=== PATIENT | female | born 1995 | race African-American/Black ===

== ENCOUNTER 2022-03-19 14:32 | Emergency (ER) | payer OTHER ==
[2022-03-19 15:52] LABS: Urine Blood Negative (Negative); Urine Glucose Negative (Negative); Urine Protein Negative (Negative); Urine Specific Gravity >=1.030 (1.005-1.030)
[2022-03-19 16:13] LABS: Urine Amorphous Sediment 1+ /HPF (NONE SEEN); Urine Bacteria <20 /HPF (<20); Urine RBC <5 /HPF (NONE SEEN)
[2022-03-19 16:14] LABS: Urine Specific Gravity/Preg >1.030 (1.005-1.030)
--- NOTE | 2022-03-19 16:42 | EDPHYS ---
Physician Documentation [facility] Name: Marine Sagastume Age: 27 yrs Sex: Female : 1995 Arrival Date: 03/19/2022 Time: 14:35 Bed DIS5 Private MD: ED Physician Yoel Murray HPI: 03/19 15:07 This 27 yrs old Black Female presents to ER via Unassigned with complaints of Abdominal pm1 Pain, Vomiting. 15:07 The patient presents with abdominal pain in the left lower quadrant. Onset: The pm1 symptoms/episode began/occurred 3 day(s) ago. The symptoms do not radiate. Associated signs and symptoms: Pertinent positives: nausea and vomiting, 1 episode of diarrhea, Pertinent negatives: fever. The symptoms are described as crampy. Modifying factors: The symptoms are alleviated by nothing, the symptoms are aggravated by nothing. Severity of pain: in the emergency department the pain is unchanged. The patient has not experienced similar symptoms in the past. The patient has not recently seen a physician. Sick contact at home. Her son with vomiting, diarrhea, and fever. Historical: - Allergies: 16:54 No Known Allergies; ss - Immunization history:: Client reports receiving the 2nd dose of the Covid vaccine. - Social history:: Smoking status: unknown. ROS: 15:07 Constitutional: Negative for fever, chills, and weight loss, Cardiovascular: Negative pm1 for chest pain, palpitations, and edema, Respiratory: Negative for shortness of breath, cough, wheezing, and pleuritic chest pain. 15:07 Back: Negative for injury and pain, : Negative for injury, bleeding, discharge, and swelling, MS/Extremity: Negative for injury and deformity, Skin: Negative for injury, rash, and discoloration, Neuro: Negative for headache, weakness, numbness, tingling, and seizure. 15:07 Abdomen/GI: Positive for abdominal pain, nausea, vomiting, and diarrhea, of the left lower quadrant. 15:07 All other systems are negative. Exam: 15:07 Constitutional: This is a well developed, well nourished patient who is awake, alert, pm1 and in no acute distress. Head/Face: Normocephalic, atraumatic. 15:07 Back: No spinal tenderness. No costovertebral tenderness. Full range of motion. Skin: Warm, dry with normal turgor. Normal color with no rashes, no lesions, and no evidence of cellulitis. MS/ Extremity: Pulses equal, no cyanosis. Neurovascular intact. Full, normal range of motion. 15:07 Cardiovascular: Exam negative for acute changes, Rate: normal, Rhythm: regular, Pulses: no pulse deficits are appreciated. 15:07 Respiratory: Exam negative for acute changes, respiratory distress, shortness of breath, Breath sounds: are clear throughout. 15:07 Abdomen/GI: Inspection: abdomen appears normal, Palpation: abdomen is soft and non-tender, in all quadrants. 15:07 Neuro: Exam negative for acute changes, Orientation: is normal, Mentation: is normal, Motor: is normal, moves all fours. Vital Signs: 16:54 BP 124 / 74; Pulse 74; Resp 16; Temp 97.2(TE); Pulse Ox 99% on R/A; ss MDM: 15:28 Patient medically screened. pm1 16:04 ED course: After evaluating the patient discussed plan of care and evaluation with pm1 blood work and CT. Patient does not want blood work or a CT. Patient was more interested in knowing if she was or not. Patient used artificial insemination by herself about 1 month ago and would like to know if the vomiting is related to . Patient also wants to know if she has a urinary tract infection. 16:41 Counseling: I had a detailed discussion with the patient and/or guardian regarding: the pm1 historical points, exam findings, and any diagnostic results supporting the discharge/admit diagnosis, lab results, the need for outpatient follow up, to return to the emergency department if symptoms worsen or persist or if there are any questions or concerns that arise at home. 20:26 Data reviewed: vital signs. Data interpreted: Pulse oximetry: on room air is 99 %. pm1 Interpretation: normal. 03/19 15:09 Order name: Urine Microscopic Only; Complete Time: 16:33 pm1 03/19 15:53 Order name: Urine Dipstick-Ancillary; Complete Time: 15:59 EDMS 03/19 15:09 Order name: Urine Dipstick-Ancillary (obtain specimen); Complete Time: 15:56 pm1 03/19 16:04 Order name: Urine --Ancillary; Complete Time: 16:33 EDMS 03/19 15:09 Order name: Urine Test (obtain specimen); Complete Time: 15:56 pm1 Administered Medications: No medications were administered Disposition Summary: 03/19/22 16:41 Discharge Ordered Location: Home pm1 Problem: new pm1 Symptoms: have improved pm1 Condition: Stable pm1 Diagnosis - Vomiting pm1 - Diarrhea, unspecified pm1 - Abdominal pain, unspecified pm1 Followup: pm1 - With: Emergency Department - When: As needed - Reason: Worsening of condition Followup: pm1 - With: Private Physician - When: 2 - 3 days - Reason: Recheck today's complaints, Continuance of care, Re-evaluation by your physician Discharge Instructions: - Discharge Summary Sheet pm1 - Abdominal Pain, Adult pm1 - Food Choices to Help Relieve Diarrhea, Adult pm1 - Diarrhea, Adult pm1 - Viral Gastroenteritis, Adult pm1 - Vomiting, Adult pm1 Forms: - Medication Reconciliation Form pm1 - Thank You Letter pm1 - Antibiotic Education pm1 - Prescription Opioid Use pm1 Prescriptions: - ondansetron 4 mg Oral tablet,disintegrating - take 1 tablet by ORAL route every 8 hours As needed; 15 tablet; Refills: 0, pm1 Product Selection Permitted - dicyclomine 20 mg Oral Tablet - take 1 tablet by ORAL route every 6 hours As needed; 20 tablet; Refills: 0, pm1 Product Selection Permitted Addendum: 03/21/2022 18:38 Co-signature as Attending Physician, Yoel purcell a2 Signatures: Dispatcher [employer] [facility] Jennifer Morel RN RN ss Marinas, Patrick, THERAPEUTIC RECREATION DIRECTOR THERAPEUTIC RECREATION DIRECTOR pm1 Yoel Murray MD MD nc2
--- NOTE | 2022-03-19 16:42 | ER ---
Nurse's Notes [facility] Name: Marine Sagastume Age: 27 yrs Sex: Female : 1995 Arrival Date: 03/19/2022 Time: 14:35 Bed DIS5 Private MD: Diagnosis: Vomiting;Diarrhea, unspecified;Abdominal pain, unspecified Presentation: 03/19 15:43 Chief complaint:. iw 15:44 Chief complaint: Patient states: LLQ pain , n/v/d X 3 days. Ebola Screen: Patient iw negative for fever greater than or equal to 101.5 degrees Fahrenheit, and additional compatible Ebola Virus Disease symptoms Patient denies exposure to infectious person. Patient denies travel to an Ebola-affected area in the 21 days before illness onset. No symptoms or risks identified at this time. Initial Sepsis Screen: Does the patient meet any 2 criteria? No. Patient's initial sepsis screen is negative. Does the patient have a suspected source of infection?. Risk Assessment: Do you want to hurt yourself or someone else? Patient reports no desire to harm self or others. Onset of symptoms was March 16, 2022. 15:44 Method Of Arrival: Ambulatory iw 15:44 Acuity: EDUARDO 3 iw Historical: - Allergies: 16:54 No Known Allergies; ss - Immunization history:: Client reports receiving the 2nd dose of the Covid vaccine. - Social history:: Smoking status: unknown. Screenin:54 Abuse screen: Denies threats or abuse. Denies injuries from another. Nutritional ss screening: No deficits noted. Tuberculosis screening: Never had TB. Fall Risk None identified. Assessment: 16:50 General: Appears in no apparent distress. comfortable, Behavior is calm, cooperative. ss Pain: Complains of pain in left lower quadrant Pain currently is 2 out of 10 on a pain scale. Quality of pain is described as tender, Is. Neuro: Level of Consciousness is awake, alert, obeys commands, Oriented to person, place, time, situation. Cardiovascular: Capillary refill < 3 seconds is brisk in bilateral fingers. Respiratory: Airway is patent Respiratory effort is even, unlabored, Respiratory pattern is regular, symmetrical. GI: Abd is soft and non tender X 4 quads. Derm: Skin is intact, is healthy with good turgor, Skin is dry, Skin is pink, warm \T\ dry. normal. Musculoskeletal: Circulation, motion, and sensation intact. Range of motion: intact in all extremities, Swelling absent. Vital Signs: 16:54 BP 124 / 74; Pulse 74; Resp 16; Temp 97.2(TE); Pulse Ox 99% on R/A; ss ED Course: 14:35 Patient arrived in ED. am2 15:07 Arpit Aguirre NP is PHCP. pm1 15:07 Yoel Murray MD is Attending Physician. pm1 15:44 Triage completed. iw 16:32 Cintia Swann, RN is Primary Nurse. iw 16:54 Arm band placed on right wrist. ss 16:54 Patient has correct armband on for positive identification. Bed in low position. Call ss light in reach. 16:54 No provider procedures requiring assistance completed. Patient did not have IV access ss during this emergency room visit. Administered Medications: No medications were administered Outcome: 16:41 Discharge ordered by MD. pm1 16:54 Discharged to home ambulatory. ss 16:54 Condition: good 16:54 Discharge instructions given to patient, Instructed on discharge instructions, follow up and referral plans. Demonstrated understanding of instructions, follow-up care, Prescriptions given X 2. 17:01 Patient left the ED. Signatures: Cintia Swann RN RN Jennifer Morel RN RN Arpit Aguirre NP [employer]WIFE [employer] BIRTH CENTER OWNER pm1 Emilie Siu am2
[2022-03-19 21:50] VITALS: BP 124/74; TEMP 97.2; O2SAT 99
== END 2022-03-19 17:01 | disposition home or self-care (01) ==
LOC: ER 14:32
DX: R10.32 Left lower quadrant pain (principal); R11.2 Nausea with vomiting, unspecified; R19.7 Diarrhea, unspecified
CPT/HCPCS: 81003; 81015; 81025; 99282

== ENCOUNTER 2022-03-23 15:20 | Emergency (ER) | payer OTHER ==
[2022-03-23 16:47] LABS: SARS-COV-2 RT PCR NEGATIVE (NEGATIVE)
--- NOTE | 2022-03-23 17:29 | ER ---
Nurse's Notes [facility] Name: Marine Sagastume Age: 27 yrs Sex: Female : 1995 Arrival Date: 03/23/2022 Time: 15:22 Bed 18 Private MD: Diagnosis: Streptococcal pharyngitis Presentation: 03/23 15:34 Chief complaint: Patient states: cough, chills, fever, sore throat and body aches since vg1 yesterday, denies NVD. Coronavirus screen: Vaccine status: Patient reports being unvaccinated. Client denies travel out of the [place] in the last 14 days. Client presents with at least one sign or symptom that may indicate coronavirus-19. Standard/surgical mask placed on the client. Ebola Screen: Patient denies exposure to infectious person. Patient denies travel to an Ebola-affected area in the 21 days before illness onset. Initial Sepsis Screen: Does the patient meet any 2 criteria? No. Patient's initial sepsis screen is negative. Does the patient have a suspected source of infection? No. Patient's initial sepsis screen is negative. Risk Assessment: Do you want to hurt yourself or someone else? Patient reports no desire to harm self or others. Onset of symptoms was March 22, 2022. 15:34 Method Of Arrival: Ambulatory vg1 15:34 Acuity: EDUARDO 3 vg1 Triage Assessment: 15:35 General: Appears in no apparent distress. uncomfortable, Behavior is cooperative. Pain: vg1 Complains of pain in generalized body. EENT: Throat is reddened. 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 - Social history:: Smoking status: Patient denies any tobacco usage or history of. Screenin:30 Abuse screen: Denies threats or abuse. Nutritional screening: No deficits noted. ll1 Tuberculosis screening: No symptoms or risk factors identified. Fall Risk Total Williamson Fall Scale indicates No Risk (0-24 pts). Assessment: 16:30 Reassessment: No changes from previously documented assessment. Patient and/or family ll1 updated on plan of care and expected duration. Pain level reassessed. Patient is alert, oriented x 3, equal unlabored respirations, skin warm/dry/pink. 17:30 Reassessment: No changes from previously documented assessment. Patient and/or family ll1 updated on plan of care and expected duration. Pain level reassessed. Patient is alert, oriented x 3, equal unlabored respirations, skin warm/dry/pink. 18:30 Reassessment: No changes from previously documented assessment. Patient and/or family ll1 updated on plan of care and expected duration. Pain level reassessed. Patient is alert, oriented x 3, equal unlabored respirations, skin warm/dry/pink. 18:41 Respiratory: Airway is patent Respiratory effort is even, unlabored, Breath sounds are ll1 clear bilaterally. Vital Signs: 15:34 BP 152 / 79; Pulse 120; Resp 18; Temp 99.5(TE); Pulse Ox 100% on R/A; Weight 136.08 kg; vg1 Height 5 ft. 5 in. (165.10 cm); Pain 5/10; 17:54 Pulse 105; ll1 18:40 BP 127 / 77; Pulse 104; Resp 17; Pulse Ox 100% on R/A; ll1 15:34 Body Mass Index 49.92 (136.08 kg, 165.10 cm) vg1 ED Course: 15:22 Patient arrived in ED. rg4 15:35 Triage completed. vg1 15:35 Arm band placed on. vg1 15:40 COVID swab sent to lab. Flu and/or RSV swab sent to lab. Strep swab sent to lab. vg1 15:48 Arpit Aguirre NP is PHCP. pm1 15:48 Yoel Murray MD is Attending Physician. pm1 16:00 Kala Armenta RN is Primary Nurse. ll1 16:00 Patient has correct armband on for positive identification. Bed in low position. Call ll1 light in reach. Cardiac monitoring not applicable on this patient. 18:41 No provider procedures requiring assistance completed. Patient did not have IV access ll1 during this emergency room visit. Administered Medications: 17:54 Drug: Decadron (dexamethasone) 10 mg Route: IM; Site: right gluteus; ll1 19:10 Follow up: Response: No adverse reaction ll1 17:54 Drug: Rocephin (cefTRIAXone) 1 grams Route: IM; Site: left gluteus; 1 19:10 Follow up: Response: No adverse reaction 1 Outcome: 17:29 Discharge ordered by MD. pm1 18:41 Patient left the ED. ll1 18:41 Discharged to home ambulatory. ll1 18:41 Condition: stable 18:41 Discharge instructions given to patient, Instructed on discharge instructions, follow up and referral plans. medication usage, Demonstrated understanding of instructions, follow-up care, medications, Prescriptions given X 1. Signatures: Arpit Aguirre NP TELEVISION PICTURE TUBE REBUILDER pm1 Anya Oden rg4 Hailey Oden RN RN vg1 Kala Armenta RN RN 1 Corrections: (The following items were deleted from the chart) 15:36 15:34 Acuity: EDUARDO 4 vg1 vg1 15:36 15:35 PSHx: None; vg1 vg1
--- NOTE | 2022-03-23 17:29 | EDPHYS ---
Physician Documentation [facility] Name: Marine Sagastume Age: 27 yrs Sex: Female : 1995 Arrival Date: 03/23/2022 Time: 15:22 Bed 18 Private MD: ED Physician Yoel Murray HPI: 03/23 16:57 This 27 yrs old Black Female presents to ER via Ambulatory with complaints of Fever, pm1 Sore Throat. 16:57 The patient presents with sore throat. The patient describes throat pain as raw, pm1 scratchy. Onset: The symptoms/episode began/occurred yesterday. Severity of symptoms: in the emergency department the symptoms are actually worse. Modifying factors: The symptoms are alleviated by nothing, the symptoms are aggravated by swallowing, Patient's oral intake status: good unaware of sick contact. Associated signs and symptoms: Pertinent positives: cough, fever, bodyaches. The patient has not recently seen a physician. 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 - Social history:: Smoking status: Patient denies any tobacco usage or history of. ROS: 16:57 Eyes: Negative for injury, pain, redness, and discharge. pm1 16:57 Cardiovascular: Negative for chest pain, palpitations, and edema, Respiratory: Negative for shortness of breath, cough, wheezing, and pleuritic chest pain, MS/Extremity: Negative for injury and deformity, Skin: Negative for injury, rash, and discoloration. 16:57 Constitutional: Positive for body aches, chills, fever, Negative for poor PO intake. 16:57 ENT: Positive for sore throat, Negative for drainage from ear(s), ear pain, difficulty swallowing, difficulty handling secretions, hoarseness. 16:57 Neuro: Positive for headache, Negative for numbness, tingling, weakness. Exam: 16:57 Constitutional: This is a well developed, well nourished patient who is awake, alert, pm1 and in no acute distress. Head/Face: Normocephalic, atraumatic. 16:57 Back: No spinal tenderness. No costovertebral tenderness. Full range of motion. Skin: Warm, dry with normal turgor. Normal color with no rashes, no lesions, and no evidence of cellulitis. MS/ Extremity: Pulses equal, no cyanosis. Neurovascular intact. Full, normal range of motion. 16:57 Eyes: Exam is negative for acute changes, Periorbital structures: appear normal, Pupils: no acute changes, Extraocular movements: no acute changes, Sclera: no acute changes, icterus, is not appreciated. 16:57 ENT: Exam is negative for acute changes. 16:57 ENT: Posterior pharynx: Airway: no evidence of obstruction, Tonsils: bilaterally enlarged, with erythema, erythema, peritonsillar mass, is not appreciated. 16:57 Neck: Exam negative for acute changes, ROM/movement: no acute changes, Lymph nodes: lymphadenopathy is appreciated, anterior cervical nodes. 16:57 Cardiovascular: Exam negative for acute changes, Rate: normal, Rhythm: regular, Pulses: no pulse deficits are appreciated. 16:57 Respiratory: Exam negative for acute changes, respiratory distress, shortness of breath. 16:57 Abdomen/GI: Exam negative for acute changes, Palpation: abdomen is soft and non-tender, in all quadrants. 16:57 Neuro: Exam negative for acute changes, Orientation: is normal, Mentation: is normal, Motor: is normal, moves all fours. Vital Signs: 15:34 BP 152 / 79; Pulse 120; Resp 18; Temp 99.5(TE); Pulse Ox 100% on R/A; Weight 136.08 kg; vg1 Height 5 ft. 5 in. (165.10 cm); Pain 5/10; 17:54 Pulse 105; ll1 18:40 BP 127 / 77; Pulse 104; Resp 17; Pulse Ox 100% on R/A; ll1 15:34 Body Mass Index 49.92 (136.08 kg, 165.10 cm) vg1 MDM: 15:51 Patient medically screened. pm1 17:27 Data reviewed: vital signs. Data interpreted: Pulse oximetry: on room air is 100 %. pm1 Interpretation: normal. 17:28 Counseling: I had a detailed discussion with the patient and/or guardian regarding: the pm1 historical points, exam findings, and any diagnostic results supporting the discharge/admit diagnosis, lab results, the need for outpatient follow up, to return to the emergency department if symptoms worsen or persist or if there are any questions or concerns that arise at home. 03/23 15:38 Order name: Strep; Complete Time: 16:57 vg1 03/23 15:40 Order name: Group A Streptococcus Rapid Sc; Complete Time: 17:21 EDMS Administered Medications: 17:54 Drug: Decadron (dexamethasone) 10 mg Route: IM; Site: right gluteus; ll1 19:10 Follow up: Response: No adverse reaction ll1 17:54 Drug: Rocephin (cefTRIAXone) 1 grams Route: IM; Site: left gluteus; ll1 19:10 Follow up: Response: No adverse reaction ll1 Disposition Summary: 03/23/22 17:29 Discharge Ordered Location: Home pm1 Problem: new pm1 Symptoms: have improved pm1 Condition: Stable pm1 Diagnosis - Streptococcal pharyngitis pm1 Followup: pm1 - With: Emergency Department - When: As needed - Reason: Worsening of condition Followup: pm1 - With: Private Physician - When: 2 - 3 days - Reason: Recheck today's complaints, Continuance of care, Re-evaluation by your physician Discharge Instructions: - Discharge Summary Sheet pm1 - Strep Throat, Adult pm1 Forms: - Medication Reconciliation Form pm1 - Thank You Letter pm1 - Antibiotic Education pm1 - Prescription Opioid Use pm1 - Work release form ll1 Prescriptions: - Amoxicillin 500 mg Oral Capsule - take 1 capsule by ORAL route every 8 hours for 10 days; 30 tablet; Refills: 0, pm1 Product Selection Permitted Signatures: Dispatcher [employer] EDArpit Conn NP TURPENTINE FARMER pm1 Hailey Oden, RN RN vg1 Kala Armenta RN RN ll1 Corrections: (The following items were deleted from the chart) 15:36 15:35 PSHx: None; vg1 vg1
[2022-03-23] MEDS ORDERED: CEFTRIAXONE 1000 MG/VIAL ONE (17:51)
[2022-03-23] MEDS ORDERED: LIDOCAINE 1% MPF 2 ML AMPULE ONE (17:51)
[2022-03-23] MEDS ORDERED: dexAMETHasone 10 MG/ML VIAL ONE (17:51)
[2022-03-23 18:45] VITALS: BP 152/79; TEMP 99.5; O2SAT 100
== END 2022-03-23 18:41 | disposition home or self-care (01) ==
LOC: ER 15:20
DX: J02.0 Streptococcal pharyngitis (principal); Z20.822 Contact with and (suspected) exposure to COVID-19
CPT/HCPCS: 87081; 0240U; 96372; 99283; J1100

== ENCOUNTER 2022-10-14 09:54 | Emergency (ER) | payer OTHER ==
[2022-10-14] MEDS ORDERED: IBUPROFEN 400 MG TAB ONE (12:09)
--- NOTE | 2022-10-14 12:11 | EDPHYS ---
Physician Documentation [facility] Name: Marine Sagatsume Age: 27 yrs Sex: Female : 1995 Arrival Date: 10/14/2022 Time: 09:58 Bed Treatment Private MD: ED Physician Richie Gomez HPI: 10/14 10:23 This 27 yrs old Black Female presents to ER via Ambulatory with complaints of Cough, jmm Chest Pain. 10:23 The patient or guardian reports cough. Onset: The symptoms/episode began/occurred jmm gradually. Modifying factors: The symptoms are alleviated by nothing, the symptoms are aggravated by nothing. This is a 27 year old female with no chronic medical conditions that presents ot the ED with complaints of cough, fever, body aches chest pain. 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 - Social history:: Smoking status: Patient denies any tobacco usage or history of. Patient/guardian denies using alcohol. ROS: 10:23 Constitutional: Positive for body aches, fever. jmm 10:23 Cardiovascular: Positive for chest pain, with cough. 10:23 Respiratory: Positive for cough. 10:23 All other systems are negative. Exam: 10:23 Constitutional: This is a well developed, well nourished patient who is awake, alert, jmm and in no acute distress. Head/Face: atraumatic. ENT: Moist Mucus Membranes Neck: Trachea midline, Supple Chest/axilla: Normal chest wall appearance and motion. Respiratory: Normal respirations, no respiratory distress appreciated Abdomen/GI: Non distended 10:23 Skin: General appearance color normal MS/ Extremity: Moves all extremities, no obvious deformities appreciated, no edema noted to the lower extremities Neuro: Awake and alert Psych: Behavior is normal, Mood is normal, Patient is cooperative and pleasant 10:23 Cardiovascular: Rate: tachycardic, Rhythm: regular. Vital Signs: 10:50 BP 142 / 75; Pulse 122; Resp 18; Temp 100.5(O); Pulse Ox 98% on R/A; Weight 141.52 kg; ld1 Height 5 ft. 6 in. (167.64 cm); Pain 3/10; 10:50 Body Mass Index 50.36 (141.52 kg, 167.64 cm) ld1 MDM: 10:50 Patient medically screened. [facility] 12:10 Data reviewed: vital signs, nurses notes. Counseling: I had a detailed discussion with [facility] the patient and/or guardian regarding: the historical points, exam findings, and any diagnostic results supporting the discharge/admit diagnosis, the need for outpatient follow up, to return to the emergency department if symptoms worsen or persist or if there are any questions or concerns that arise at home. 10/14 10:22 Order name: COVID-19/FLU A+B (Document "Date of Onset" if Symptomatic) [facility] Administered Medications: 12:13 Drug: Ibuprofen 800 mg Route: PO; Disposition: 12:42 Co-signature as Attending Physician, Richie Gomez MD. rn Disposition Summary: 10/14/22 12:11 Discharge Ordered Location: Home [facility] Condition: Stable [facility] Diagnosis - Viral Syndrome [facility] Followup: [facility] - With: Private Physician - When: 2 - 3 days - Reason: Recheck today's complaints, Continuance of care, Re-evaluation by your physician Discharge Instructions: - Discharge Summary Sheet [facility] - Influenza, Adult [facility] Forms: - Medication Reconciliation Form [facility] - Work release form [facility] - Thank You Letter [facility] - Antibiotic Education [facility] - Prescription Opioid Use [facility] Prescriptions: - Tamiflu 75 mg Oral Capsule - take 1 tablet by ORAL route every 12 hours for 5 days; 10 tablet; Refills: 0, [facility] Product Selection Permitted - promethazine-DM - take 5 milliliter by ORAL route every 4-6 hours As needed; 120 milliliter; [facility] Refills: 0, Product Selection Permitted Signatures: Dispatcher [employer] EDMS Aaron Grullon PA PA [facility] Richie Gomez MD MD rn Smirch, Shelby, RN RN ss Jennifer Dalton RN RN ld1 Corrections: (The following items were deleted from the chart) 10:53 10:52 Allergies: Aspirin; ld1 ld1
--- NOTE | 2022-10-14 12:11 | ER ---
Nurse's Notes [facility] Name: Marine Sagastume Age: 27 yrs Sex: Female : 1995 Arrival Date: 10/14/2022 Time: 09:58 Bed Treatment Private MD: Diagnosis: Viral Syndrome Presentation: 10/14 10:50 Chief complaint: Patient states: Chest pain - began 3 years ago - intermittent pain. ld1 Cough, Congestion, Fever, Body aches, Lightheaded since last night. Coronavirus screen: At this time, the client does not indicate any symptoms associated with coronavirus-19. Ebola Screen: No symptoms or risks identified at this time. Initial Sepsis Screen: Does the patient meet any 2 criteria? No. Patient's initial sepsis screen is negative. Does the patient have a suspected source of infection? No. Patient's initial sepsis screen is negative. Risk Assessment: Do you want to hurt yourself or someone else? Patient reports no desire to harm self or others. Onset of symptoms was October 14, 2022. 10:50 Method Of Arrival: Ambulatory ld1 10:50 Acuity: EDUARDO 3 ld1 Triage Assessment: 10:52 General: Appears in no apparent distress. comfortable, Behavior is calm, cooperative, ld1 appropriate for age. Pain: Complains of pain in chest Pain does not radiate. Pain currently is 3 out of 10 on a pain scale. Is intermittent. EENT: No signs and/or symptoms were reported regarding the EENT system. Neuro: Level of Consciousness is awake, alert, obeys commands, Oriented to person, place, time, situation. Cardiovascular: Capillary refill < 3 seconds Patient's skin is warm and dry. Cardiovascular: Chest pain is described as mild. Respiratory: Airway is patent Respiratory effort is even, unlabored. GI: Abdomen is round non-distended. : No signs and/or symptoms were reported regarding the genitourinary system. Derm: No signs and/or symptoms reported regarding the dermatologic system. Musculoskeletal: No signs and/or symptoms reported regarding the musculoskeletal system. COMPENSATION INTERN: 10:52 LMP 10/14/2022 ld1 Historical: - Allergies: 10:52 No Known Allergies; ld1 - PMHx: 10:52 None; ld1 - PSHx: 10:52 Cholecystectomy; ld1 - Immunization history:: Adult Immunizations up to date, Client reports receiving the 2nd dose of the Covid vaccine. - Social history:: Smoking status: Patient denies any tobacco usage or history of. Patient/guardian denies using alcohol. Vital Signs: 10:50 BP 142 / 75; Pulse 122; Resp 18; Temp 100.5(O); Pulse Ox 98% on R/A; Weight 141.52 kg; ld1 Height 5 ft. 6 in. (167.64 cm); Pain 3/10; 10:50 Body Mass Index 50.36 (141.52 kg, 167.64 cm) ld1 ED Course: 09:58 Patient arrived in ED. mr 10:02 Aaron Grullon PA is PHCP. marilou 10:02 Richie Gomez MD is Attending Physician. [facility] 10:52 Triage completed. ld1 10:52 Arm band placed on right wrist. ld1 12:07 Cintia Swann, RN is Primary Nurse. iw Administered Medications: 12:13 Drug: Ibuprofen 800 mg Route: PO; Outcome: 12:11 Discharge ordered by . [facility] 12:20 Patient left the ED. iw Signatures: Aaron Grullon PA PA jmm Rivera, Mary mr Cintia Swann, RICHAR RN Jennifer Morel RN RN Jennifer Dalton RN RN ld1 Corrections: (The following items were deleted from the chart) 10:53 10:52 Allergies: Aspirin; ld1 ld1
[2022-10-14 12:43] VITALS: BP 142/75; TEMP 100.5; O2SAT 98
[2022-10-14 14:23] LABS: SARS-COV-2 RT PCR NEGATIVE (NEGATIVE)
== END 2022-10-14 12:20 | disposition home or self-care (01) ==
LOC: ER 09:54
DX: B34.9 Viral infection, unspecified (principal); Z20.822 Contact with and (suspected) exposure to COVID-19
CPT/HCPCS: 0240U; 99282

== ENCOUNTER 2022-11-06 19:55 | Emergency (ER) | payer OTHER ==
[2022-11-06 21:40] LABS: Absolute Lymphocytes (CBC) 2.7 K/uL (0.7-4.9); Hematocrit 33.1 % (36.0-45.0); MCV 76.6 fL (80-100); MPV 9.3 fL (7.6-11.3); RBC Red Blood Cell Count 4.32 M/uL (3.86-4.86)
[2022-11-06 21:48] LABS: Albumin 3.3 g/dL (3.4-5.0); Bilirubin Total 0.1 mg/dL (0.2-1.0); Potassium 3.7 mmol/L (3.5-5.1); Troponin High Sensitivity 4.4 pg/mL (<58.9)
--- NOTE | 2022-11-06 22:00 | EDPHYS ---
Physician Documentation [facility] Name: Marine Sagastume Age: 27 yrs Sex: Female : 1995 Arrival Date: 11/06/2022 Time: 19:59 Bed 7 Private MD: ED Physician Anthony Nevarez HPI: 11/06 21:17 This 27 yrs old Black Female presents to ER via Ambulatory with complaints of Chest edith Pain, Back Pain. 21:17 The patient or guardian reports chest pain that is located primarily in the anterior edith chest wall, right. The pain does not radiate. Associated signs and symptoms: The patient has no apparent associated signs or symptoms. The chest pain is described as aching. Duration: The patient or guardian reports multiple episodes, that wax and wane. Modifying factors: The symptoms are alleviated by nothing. the symptoms are aggravated by nothing. Severity of pain: At its worst the pain was mild moderate in the emergency department the pain is unchanged. The patient has experienced similar episodes in the past, chronically. DRAW HAND: 20:16 LMP 10/21/2022 tw5 Historical: - Allergies: 20:16 No Known Allergies; tw5 - Home Meds: 20:16 None [Active]; tw5 - PMHx: 20:16 None; tw5 - PSHx: 20:16 Cholecystectomy; tw5 - Immunization history:: Flu vaccine is not up to date. - Social history:: Smoking status: Patient denies any tobacco usage or history of. - Family history:: not pertinent. ROS: 21:17 Constitutional: Negative for fever, chills, and weight loss, Eyes: Negative for injury, edith pain, redness, and discharge, ENT: Negative for injury, pain, and discharge, Neck: Negative for injury, pain, and swelling, Respiratory: Negative for shortness of breath, cough, wheezing, and pleuritic chest pain, Abdomen/GI: Negative for abdominal pain, nausea, vomiting, diarrhea, and constipation, Back: Negative for injury and pain, : Negative for injury, bleeding, discharge, and swelling, MS/Extremity: Negative for injury and deformity, Skin: Negative for injury, rash, and discoloration, Neuro: Negative for headache, weakness, numbness, tingling, and seizure. 21:17 Cardiovascular: Positive for chest pain. Exam: 21:17 Constitutional: This is a well developed, well nourished patient who is awake, alert, edith and in no acute distress. Head/Face: Normocephalic, atraumatic. Eyes: Pupils equal round and reactive to light, extra-ocular motions intact. Lids and lashes normal. Conjunctiva and sclera are non-icteric and not injected. Cornea within normal limits. Periorbital areas with no swelling, redness, or edema. ENT: Nares patent. No nasal discharge, no septal abnormalities noted. Tympanic membranes are normal and external auditory canals are clear. Oropharynx with no redness, swelling, or masses, exudates, or evidence of obstruction, uvula midline. Mucous membranes moist. Neck: Trachea midline, no thyromegaly or masses palpated, and no cervical lymphadenopathy. Supple, full range of motion without nuchal rigidity, or vertebral point tenderness. No Meningismus. Chest/axilla: Normal chest wall appearance and motion. Nontender with no deformity. No lesions are appreciated. Cardiovascular: Regular rate and rhythm with a normal S1 and S2. No gallops, murmurs, or rubs. Normal PMI, no JVD. No pulse deficits. Respiratory: Lungs have equal breath sounds bilaterally, clear to auscultation and percussion. No rales, rhonchi or wheezes noted. No increased work of breathing, no retractions or nasal flaring. Abdomen/GI: Soft, non-tender, with normal bowel sounds. No distension or tympany. No guarding or rebound. No evidence of tenderness throughout. Back: No spinal tenderness. No costovertebral tenderness. Full range of motion. Skin: Warm, dry with normal turgor. Normal color with no rashes, no lesions, and no evidence of cellulitis. MS/ Extremity: Pulses equal, no cyanosis. Neurovascular intact. Full, normal range of motion. Neuro: Awake and alert, GCS 15, oriented to person, place, time, and situation. Cranial nerves II-XII grossly intact. Motor strength 5/5 in all extremities. Sensory grossly intact. Cerebellar exam normal. Normal gait. Psych: Awake, alert, with orientation to person, place and time. Behavior, mood, and affect are within normal limits. 21:17 ECG was reviewed by the Attending Physician. Vital Signs: 20:14 BP 138 / 97; Pulse 88; Resp 18; Temp 98.3; Pulse Ox 100% ; Weight 140.61 kg; Height 5 tw5 ft. 6 in. (167.64 cm); Pain 8/10; 23:02 BP 125 / 91; Pulse 80; Resp 18; Pulse Ox 100% on R/A; Pain 0/10; kl 20:14 Body Mass Index 50.03 (140.61 kg, 167.64 cm) tw5 MDM: 20:28 Patient medically screened. [facility] 21:20 Differential diagnosis: abnormal EKG, acute pericarditis, chest wall pain, edith Cholelithiasis costochondritis, gastritis, pancreatitis, pleurisy, pneumonia, pneumothorax, pulmonary embolus, stable angina, thoracic aortic disection, unstable angina. HEART Score: History: Slightly Suspicious (0), ECG: Normal (0), Age: < or = 45 years (0), Risk Factors: No Risk Factors Known (0), Troponin: < or = 1 x Normal Limit (0), Total Score = 0. The patient's deep vein thrombosis risk score was calculated as follows: Total Score: 0. This patient was found to be at low risk for a deep vein thrombosis by using the Well's assessment criteria. The patient's pulmonary embolism risk score was calculated as follows: Total Score: 0-2 points. This patient was found to be at low risk for a pulmonary embolism by using the Well's assessment criteria. ROBINA Risk Score: TOTAL SCORE = 0. Data reviewed: vital signs, nurses notes, lab test result(s), EKG, radiologic studies, plain films. Data interpreted: car salter: rate is 88 beats/min, rhythm is regular, Pulse oximetry: on room air is 100 %. Test interpretation: by ED physician or midlevel provider: ECG, plain radiologic studies. Counseling: I had a detailed discussion with the patient and/or guardian regarding: the historical points, exam findings, and any diagnostic results supporting the discharge/admit diagnosis, lab results, radiology results, the need for outpatient follow up, for definitive care, a mate fishing vessel, a family practitioner. 11/06 20:51 Order name: CBC with Diff; Complete Time: 21:59 [facility] 11/06 20:51 Order name: Comprehensive Metabolic Panel; Complete Time: 21:59 [facility] 11/06 20:51 Order name: Troponin High Sensitivity; Complete Time: 21:59 [facility] 11/06 20:51 Order name: Lipase; Complete Time: 21:59 edith 11/06 22:14 Order name: Urine --Ancillary (enter results); Complete Time: 22:37 ds4 11/06 22:16 Order name: Urine Dipstick-Ancillary; Complete Time: 22:37 EDMS 11/06 20:51 Order name: CT Chest For PE Angio; Complete Time: 22:37 [facility] 11/06 20:51 Order name: Urine Dipstick-Ancillary (obtain specimen); Complete Time: 22:14 [facility] 11/06 20:51 Order name: Urine Test (obtain specimen); Complete Time: 22:14 [facility] 11/06 20:51 Order name: EKG; Complete Time: 20:52 [facility] 11/06 20:51 Order name: EKG - Nurse/Tech; Complete Time: 21:10 [facility] EC:17 Rate is 87 beats/min. Rhythm is regular. QRS [place] is Normal. LA interval is normal. QRS edith interval is normal. QT interval is normal. No Q waves. T waves are Normal. No ST changes noted. Clinical impression: Normal ECG and No evidence of ischemia. Interpreted by me. Reviewed by me. Administered Medications: 22:36 Drug: Ketorolac 30 mg Route: IVP; Site: right antecubital; kl 23:03 Follow up: Response: No adverse reaction; Marked relief of symptoms kl Disposition Summary: 11/06/22 21:59 Discharge Ordered Location: Home edith Problem: new edith Symptoms: have improved edith Condition: Stable edith Diagnosis - Strain of muscle and tendon of back wall of thorax edith - Strain of muscle and tendon of front wall of thorax edith - Chest pain, unspecified edith - Chest pain on breathing edith Followup: edith - With: Private Physician - When: 2 - 3 days - Reason: Recheck today's complaints, Continuance of care, Re-evaluation by your physician Followup: edith - With: - When: 2 - 3 days - Reason: Recheck today's complaints, Re-evaluation by your physician Discharge Instructions: - Discharge Summary Sheet edith - Nonspecific Chest Pain, Adult edith - Costochondritis edith - Nonspecific Chest Pain, Adult, [id number] edith Forms: - Medication Reconciliation Form edith - Thank You Letter edith - Antibiotic Education edith - Prescription Opioid Use edith Prescriptions: - Ibuprofen 600 mg Oral Tablet - take 1 tablet by ORAL route every 6 hours As needed take with food; 20 tablet; [facility] Refills: 0, Product Selection Permitted - Pepcid 20 mg Oral Tablet - take 1 tablet by ORAL route every 12 hours for 21 days; 42 tablet; Refills: 0, [facility] Product Selection Permitted Signatures: Dispatcher [employer] Yasmeen Henderson RN RN kl Anderson, Corey, MD MD cha Wood, Tiffany tw5
--- NOTE | 2022-11-06 22:00 | ER ---
Nurse's Notes [facility] Name: Marine Sagastume Age: 27 yrs Sex: Female : 1995 Arrival Date: 11/06/2022 Time: 19:59 Bed 7 Private MD: Diagnosis: Strain of muscle and tendon of back wall of thorax;Strain of muscle and tendon of front wall of thorax;Chest pain, unspecified;Chest pain on breathing Presentation: 11/06 20:14 Chief complaint: Patient states: "I have been having this pain for years. My mom just tw5 told me that I need to get it checked out. It is on the right side of my chest and it goes into my shoulder and sometimes under my right breast.". Coronavirus screen: Vaccine status: Patient reports being unvaccinated. Ebola Screen: Patient negative for fever greater than or equal to 101.5 degrees Fahrenheit, and additional compatible Ebola Virus Disease symptoms Patient denies exposure to infectious person. Patient denies travel to an Ebola-affected area in the 21 days before illness onset. Initial Sepsis Screen: Does the patient meet any 2 criteria? No. Patient's initial sepsis screen is negative. Does the patient have a suspected source of infection? No. Patient's initial sepsis screen is negative. Risk Assessment: Do you want to hurt yourself or someone else? Patient reports no desire to harm self or others. Onset of symptoms is unknown. 20:14 Method Of Arrival: Ambulatory tw5 20:14 Acuity: EDUARDO 3 tw5 Triage Assessment: 20:16 Pain: Complains of pain in anterior aspect of right upper chest Pain radiates to right tw5 breast and anterior aspect of right shoulder Pain currently is 8 out of 10 on a pain scale. Cardiovascular: Capillary refill < 3 seconds is brisk in bilateral fingers. 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 - Social history:: Smoking status: Patient denies any tobacco usage or history of. - Family history:: not pertinent. Screenin:13 Abuse screen: Denies threats or abuse. Nutritional screening: On. Tuberculosis kl screening: No symptoms or risk factors identified. Fall Risk None identified. Assessment: 21:11 General: Appears in no apparent distress. comfortable, well groomed, well developed, kl Behavior is calm, cooperative. Pain: Complains of pain in right arm and anterior aspect of right shoulder and right breast and chest and anterior aspect of right upper chest Pain currently is 4 out of 10 on a pain scale. Pain began 2-3 days ago. Neuro: No deficits noted. Cardiovascular: Heart tones S1 S3 Capillary refill < 3 seconds Patient's skin is warm and dry. Pulses are all present. Rhythm is sinus rhythm. Respiratory: No deficits noted. Airway is patent Trachea midline Respiratory effort is even, unlabored, Respiratory pattern is regular, Breath sounds are clear bilaterally. GI: No deficits noted. No signs and/or symptoms were reported involving the gastrointestinal system. : No deficits noted. Vital Signs: 20:14 BP 138 / 97; Pulse 88; Resp 18; Temp 98.3; Pulse Ox 100% ; Weight 140.61 kg; Height 5 tw5 ft. 6 in. (167.64 cm); Pain 8/10; 23:02 BP 125 / 91; Pulse 80; Resp 18; Pulse Ox 100% on R/A; Pain 0/10; kl 20:14 Body Mass Index 50.03 (140.61 kg, 167.64 cm) tw5 ED Course: 19:59 Patient arrived in ED. ja2 20:16 Triage completed. tw5 20:16 Arm band placed on. tw5 20:28 Anthony Nevarez MD is Attending Physician. edith 21:13 Patient has correct armband on for positive identification. Client placed on continuous kl cardiac and pulse oximetry monitoring. NIBP monitoring applied. 21:13 No provider procedures requiring assistance completed. Inserted saline lock: 20 gauge kl in right antecubital area, using aseptic technique. Patient maintains SpO2 saturation greater than 95% on room air. 21:59 Kentrell Dior MD is Referral Physician. edith 22:20 CT Chest For PE Angio In Process Unspecified. EDMS 23:03 IV discontinued, intact, bleeding controlled, No redness/swelling at site. Pressure kl dressing applied. Administered Medications: 22:36 Drug: Ketorolac 30 mg Route: IVP; Site: right antecubital; kl 23:03 Follow up: Response: No adverse reaction; Marked relief of symptoms reggie Medication: 23:02 VIS not applicable for this client. reggie Outcome: 21:59 Discharge ordered by . edith 23:03 Discharged to home ambulatory. 23:03 Condition: improved 23:03 Discharge instructions given to patient, Instructed on discharge instructions, follow up and referral plans. medication usage, Demonstrated understanding of instructions, follow-up care, medications, Prescriptions given X 2. 23:22 Patient left the ED. ll3 Signatures: Dispatcher [employer] EDYasmeen Hyatt, RN RN Anthony Heath MD MD cha Alexander, Jessica ja2 Wood, Tiffany tw Vee Martinez, RN RN ll3
[2022-11-06] MEDS ORDERED: KETOROLAC 30 MG/ML INJ ONE (22:03)
[2022-11-06 22:15] LABS: Urine Blood Negative (Negative); Urine Glucose Negative (Negative); Urine Protein Negative (Negative); Urine Specific Gravity >=1.030 (1.005-1.030); Urine pH 6.5 (5.0-7.0)
--- NOTE | 2022-11-06 22:32 | RAD REPORT ---
EXAM DESCRIPTION: CT - Chest For Pe Angio - 11/06/2022 10:19 pm CLINICAL HISTORY: CP COMPARISON: No comparisons TECHNIQUE: Dynamically enhanced 3 mm thick images of the chest were obtained during administration o f approximately 150mL Isovue 370 IV contrast. Coronal and oblique MIP reconstruction images were gene rated and reviewed. Exam utilizes a protocol to evaluate the pulmonary arterial tree. All CT scans are performed using dose optimization technique as appropriate and may include automated exposure control or mA/KV adjustment according to patient size. FINDINGS: No pulmonary emboli are identified. The aorta as imaged shows no acute or suspicious finding. No pericardial thickening or effusion. No infiltrate or mass in the lung parenchyma. No pleural effusion or pleural thickening. A few nonspecific partially calcified mediastinal lymph nodes are present. No suspicious lymphadenopa thy. No chest wall masses or abnormal axillary lymphadenopathy. IMPRESSION: No pulmonary emboli identified. No other significant or suspicious findings.
[2022-11-06 22:34] LABS: Urine Specific Gravity/Preg >1.030 (1.005-1.030)
[2022-11-07 05:30] VITALS: TEMP 98.3; O2SAT 100
[2022-11-07 05:35] VITALS: BP 125/91
--- NOTE | 2022-11-07 16:00 | EKG ---
Test Date: 2022-11-06 Test Time: 21:06:05 Gutter Installer: ALIS MEASUREMENT RESULTS: Intervals: Rate: 87 AR: 150 QRSD: 78 QT: 344 QTc: 413 [place]: P: 38 AR: 150 QRS: -4 T: 9 INTERPRETIVE STATEMENTS: Normal sinus rhythm Normal ECG No previous ECG available for comparison Electronically Signed On 11-07-22 15:59:49 DISK OPERATOR by Pranav Flaherty
== END 2022-11-06 23:22 | disposition home or self-care (01) ==
LOC: ER 19:55
DX: S29.012A Strain of muscle and tendon of back wall of thorax, initial encounter (principal); S29.011A Strain of muscle and tendon of front wall of thorax, initial encounter; R07.9 Chest pain, unspecified
CPT/HCPCS: 93005; 85025; 36415; 81025; 81003; 84484; 83690; 80053; 71275; 96374; 99285; Q9967

== ENCOUNTER 2023-07-13 13:56 | Emergency (ER) | payer OTHER ==
[2023-07-13 14:48] LABS: Absolute Lymphocytes (CBC) 2.4 K/uL (0.7-4.9); Hematocrit 37.4 % (36.0-45.0); MCV 77.8 fL (80-100); MPV 8.8 fL (7.6-11.3); Platelets 220 thou/uL (152-406); RBC Red Blood Cell Count 4.81 M/uL (3.86-4.86)
[2023-07-13 15:03] LABS: Potassium 4.1 mEq/L (3.5-5.1)
--- NOTE | 2023-07-13 15:24 | RAD REPORT ---
EXAM DESCRIPTION: US - Pelvis Complete - 07/13/2023 3:04 pm CLINICAL HISTORY: Pelvic pain COMPARISON: None FINDINGS: The patient declined endovaginal sonogram Limited evaluation of the pelvis as the bladder is poorly distended. Uterus measures 10 x 5 x 7 centimeters. The endometrial stripe is poorly seen. 4.3 centimeter isoechoic structure abuts the left aspect of the uterus. Right ovary normal in size and echotexture. Left ovary not clearly seen secondary to overlying bowel gas. No significant free fluid IMPRESSION: Limited examination. 4.3 centimeter isoechoic structure abuts the left aspect of the uterus. This may represent a subseros al fibroid. Ovarian mass is possible but probably less likely. Follow up endovaginal sonogram in 2-3 months recommended for re-evaluation
--- NOTE | 2023-07-13 15:38 | EDPHYS ---
Physician Documentation [facility] Name: Marine Sagastume Age: 28 yrs Sex: Female : 1995 Arrival Date: 07/13/2023 Time: 13:56 Bed 13 Private MD: ED Physician Royal German HPI: 07/13 15:06 This 28 yrs old Black Female presents to ER via Ambulatory with complaints of Vaginal kb Bleeding x 34 Days. 15:06 The patient presents with vaginal bleeding that is moderate. Onset: The kb symptoms/episode began/occurred 34 day(s) ago. Modifying factors: The symptoms are alleviated by nothing, the symptoms are aggravated by nothing. Associated signs and symptoms: Pertinent positives: vaginal bleeding. Severity of symptoms: At their worst the symptoms were moderate, in the emergency department the symptoms are unchanged. The patient has not experienced similar symptoms in the past. The patient has not recently seen a physician. Pt reports she has had vaginal bleeding for 34 days. Came in today because her IUD fell out and her mother told her she needed to come in. Pt reports cramping. Historical: - Allergies: 14:31 No Known Allergies; nj1 - PMHx: 14:31 Anemia; nj1 - PSHx: 14:31 section; Cholecystectomy; nj1 - Immunization history:: Client reports having NOT received the Covid vaccine. - Social history:: Smoking status: Patient denies any tobacco usage or history of. ROS: 15:05 Constitutional: Negative for fever, chills, and weight loss. kb 15:05 Abdomen/GI: Positive for abdominal cramps. 15:05 : Positive for vaginal bleeding. 15:05 All other systems are negative. Exam: 15:05 Constitutional: This is a well developed, well nourished patient who is awake, alert, kb and in no acute distress. Head/Face: Normocephalic, atraumatic. ENT: Moist Mucous membranes Cardiovascular: Regular rate and rhythm with a normal S1 and S2. No gallops, murmurs, or rubs. No pulse deficits. Respiratory: Respirations even and unlabored. No increased work of breathing. Talking in full sentences Abdomen/GI: Soft, non-tender. No distention Skin: Warm, dry with normal turgor. Normal color. MS/ Extremity: Pulses equal, no cyanosis. Neurovascular intact. Full, normal range of motion. Neuro: Awake and alert, GCS 15, oriented to person, place, time, and situation. Moves all extremities. Normal gait. Vital Signs: 14:20 BP 145 / 97; Pulse 84; Resp 16; Temp 98.4(O); Pulse Ox 99% ; Weight 142.88 kg; Height 5 nj1 ft. 5 in. ; Pain 5/10; 14:20 Body Mass Index 52.42 (142.88 kg, 165.1 cm) nj1 14:20 Pain Scale: Adult nj1 MDM: 13:59 Patient medically screened. kb 15:06 Data reviewed: vital signs, nurses notes. kb 15:07 Differential diagnosis: dysmenorrhea, menorrhea, uterine fibroids, anemia. Counseling: merle I had a detailed discussion with the patient and/or guardian regarding: the historical points, exam findings, and any diagnostic results supporting the discharge/admit diagnosis, lab results, radiology results, the need for outpatient follow up, an OB/Gyne specialist, to return to the emergency department if symptoms worsen or persist or if there are any questions or concerns that arise at home. 07/13 14:12 Order name: CBC with Diff; Complete Time: 14:56 kb 07/13 14:12 Order name: Basic Metabolic Panel; Complete Time: 15:03 kb 07/13 14:12 Order name: US Pelvis Complete; Complete Time: 15:36 kb Administered Medications: No medications were administered Disposition Summary: 07/13/23 15:37 Discharge Ordered Location: Home kb Condition: Stable kb Diagnosis - Abnormal uterine and vaginal bleeding, unspecified kb Followup: kb - With: Emergency Department - When: As needed - Reason: Worsening of condition Followup: kb - With: Private Physician - When: 2 - 3 days - Reason: Recheck today's complaints, Continuance of care, Re-evaluation by your physician Discharge Instructions: - Discharge Summary Sheet kb - Abnormal Uterine Bleeding, [id number] kb Forms: - Medication Reconciliation Form kb - Thank You Letter kb - Antibiotic Education kb - Prescription Opioid Use kb - Patient Portal Instructions kb - Leadership Thank You Letter kb Signatures: Dispatcher [employer] Caron Izaguirre, SABINEC KHUSHBOO-Whitney Becker RN RN nj1
--- NOTE | 2023-07-13 15:38 | ER ---
Nurse's Notes [facility] Name: Marine Sagastume Age: 28 yrs Sex: Female : 1995 Arrival Date: 07/13/2023 Time: 13:56 Bed 13 Private MD: Diagnosis: Abnormal uterine and vaginal bleeding, unspecified Presentation: 07/13 14:20 Chief complaint: Patient states: Vaginal bleeding for 34 days. Pt states she had IUD nj1 placed 2 months ago. Started having pelvic cramping yesterday and today her IUD fell out. Still bleeding. 14:20 Coronavirus screen: Vaccine status: Patient reports being unvaccinated. Ebola Screen: nj Patient denies travel to an Ebola-affected area in the 21 days before illness onset. Initial Sepsis Screen: Does the patient meet any 2 criteria? No. Patient's initial sepsis screen is negative. Does the patient have a suspected source of infection? No. Patient's initial sepsis screen is negative. Risk Assessment: Do you want to hurt yourself or someone else? Patient reports no desire to harm self or others. Onset of symptoms was May 2023. 14:20 Method Of Arrival: Ambulatory [facility] 14:20 Acuity: EDUARDO 3 nj1 Historical: - Allergies: 14:31 No Known Allergies; nj1 - PMHx: 14:31 Anemia; nj1 - PSHx: 14:31 section; Cholecystectomy; nj1 - Immunization history:: Client reports having NOT received the Covid vaccine. - Social history:: Smoking status: Patient denies any tobacco usage or history of. Screenin:39 [facility] ED Fall Risk Assessment (Adult) Score/Fall Risk Level 0 - 2 = Low Risk hb Oriented to surroundings, Maintained a safe environment. Abuse screen: Denies threats or abuse. Denies injuries from another. Nutritional screening: No deficits noted. Tuberculosis screening: No symptoms or risk factors identified. Assessment: 14:39 General: Appears in no apparent distress. Behavior is calm, cooperative. Pain: Pain hb currently is 5 out of 10 on a pain scale. Neuro: Level of Consciousness is awake, alert, obeys commands, Oriented to person, place, time, situation. Cardiovascular: Patient's skin is warm and dry. Respiratory: Respiratory effort is even, unlabored, Respiratory pattern is regular, symmetrical. GI: Reports cramping. : Reports vaginal bleeding that is bright red, with clots. EENT: No signs and/or symptoms were reported regarding the EENT system. Derm: Skin is pink, warm \T\ dry. Musculoskeletal: No signs and/or symptoms reported regarding the musculoskeletal system. 15:36 Reassessment: Patient appears in no apparent distress at this time. Patient and/or hb family updated on plan of care and expected duration. Pain level reassessed. Patient is alert, oriented x 3, equal unlabored respirations, skin warm/dry/pink. Vital Signs: 14:20 BP 145 / 97; Pulse 84; Resp 16; Temp 98.4(O); Pulse Ox 99% ; Weight 142.88 kg; Height 5 nj1 ft. 5 in. ; Pain 5/10; 14:20 Body Mass Index 52.42 (142.88 kg, 165.1 cm) nj1 14:20 Pain Scale: Adult [facility] ED Course: 13:57 Patient arrived in ED. rg4 13:58 Caron Reyes FNP-C is [facility]. kb 13:58 Royal German MD is Attending Physician. kb 14:31 Triage completed. nj1 14:31 Arm band placed on right wrist. nj1 14:32 Inserted saline lock: 20 gauge in right antecubital area, using aseptic technique. hb Blood collected. 14:39 Hali Miller, RN is Primary Nurse. hb 14:39 Patient has correct armband on for positive identification. Provided Education on: . hb 15:06 US Pelvis Complete In Process Unspecified. EDMS 15:55 No provider procedures requiring assistance completed. IV discontinued, intact, hb bleeding controlled, No redness/swelling at site. Administered Medications: No medications were administered Medication: 14:39 VIS not applicable for this client. hb Outcome: 15:37 Discharge ordered by . kb 15:55 Discharged to home ambulatory. hb 15:55 Condition: stable 15:55 Discharge instructions given to patient, Instructed on discharge instructions, follow up and referral plans. medication usage, Demonstrated understanding of instructions, follow-up care, medications. 15:56 Patient left the ED. hb Signatures: Dispatcher [employer] EDAZ Caron Reyes FNP-C FNP-Hali Yang RN RN Anya Oden rg4 Clyde, Whitney, RN RN nj1
[2023-07-13 16:24] VITALS: BP 145/97; TEMP 98.4; O2SAT 99
== END 2023-07-13 15:56 | disposition home or self-care (01) ==
LOC: ER 13:56
DX: N93.9 Abnormal uterine and vaginal bleeding, unspecified (principal)
CPT/HCPCS: 36415; 76856; 80048; 85025; 99283

== ENCOUNTER 2023-10-09 12:14 | Emergency (ER) | payer OTHER ==
[2023-10-09 13:59] LABS: Absolute Lymphocytes (CBC) 2.2 K/uL (0.7-4.9); Hematocrit 27.3 % (36.0-45.0); Lymphocytes % 20.8 % (15.3-44.8); MCV 71.2 fL (80-100); MPV 8.7 fL (7.6-11.3); Platelets 245 thou/uL (152-406); RBC Red Blood Cell Count 3.84 M/uL (3.86-4.86); Specific Gravity 1.028 (1.005-1.030)
[2023-10-09] MEDS ORDERED: KETOROLAC 30 MG/ML INJ ONE (14:09)
[2023-10-09] MEDS ORDERED: NA CHLORIDE 0.9% 1,000 ML ONE (14:09)
[2023-10-09 14:15] LABS: Albumin 3.3 g/dL (3.4-5.0); Bilirubin Total 0.2 mg/dL (0.2-1.0); Potassium 3.7 mEq/L (3.5-5.1); Protein, Total 7.7 g/dL (6.4-8.2)
[2023-10-09 14:20] LABS: Specific Gravity 1.028 (1.005-1.030); Urine Bacteria <20 /HPF (<20); Urine Bilirubin NEGATIVE (Negative); Urine Blood 3+ (OVER) (Negative); Urine Clarity Extremely Turbid (Clear); Urine Color Yellow (Yellow); Urine Glucose NEGATIVE (Negative); Urine Mucus Slight /HPF (None Seen); Urine Protein 1+ (Negative); Urine RBC >50 /HPF (None Seen); Urine Urobilinogen Normal (Normal); Urine pH 5.5 (5.0-7.0)
--- NOTE | 2023-10-09 15:40 | RAD REPORT ---
EXAM DESCRIPTION: CT - Abdomen Pelvis Wo Contrast - 10/09/2023 2:38 pm CLINICAL HISTORY: ABD PAIN COMPARISON: Pelvis Complete dated 07/13/2023 TECHNIQUE: Thin cut axial CT imaging of the abdomen and pelvis was performed without IV contrast. Mu ltiplanar reformats were generated and reviewed. All CT scans are performed using dose optimization technique as appropriate and may include automated exposure control or mA/KV adjustment according to patient size. FINDINGS: No suspicious findings in the lung bases. The liver, adrenal glands, spleen, and pancreas show no suspicious findings. Small splenule noted. Ga llbladder was surgically removed. Symmetric renal contour, without suspicious parenchymal findings within limits of noncontrast techniq ue. 4 millimeter calculus present at the mid aspect of the left ureter. Moderate left hydroureteronep hrosis proximal to this level. No radiopaque calculi or hydroureteronephrosis on the right. No dilated bowel loops or bowel wall thickening. No free air, free fluid or inflammatory stranding. N o hernia, mass or bulky lymphadenopathy. Bulky appearance of the uterus at the fundus, and left cornu al region, may relate to underlying fibroids. This was better evaluated on the recent pelvic ultrasou nd. The urinary bladder is without significant finding. No suspicious bony findings. IMPRESSION: Moderate left hydroureteronephrosis with a 4 millimeter calculus at the level of the mid left ureter. Other incidental findings as above. The findings were communicated to Dr. Begum on 10/09/2023 at 15:37 hours.
--- NOTE | 2023-10-09 15:54 | EDPHYS ---
Physician Documentation [facility] Name: Marine Sagastume Age: 28 yrs Sex: Female : 1995 Arrival Date: 10/09/2023 Time: 12:14 Bed 24 Private MD: ED Physician Joss Rossi HPI: 10/09 13:45 This 28 yrs old Black Female presents to ER via Ambulatory with complaints of Possible ms3 Kidney Stone. 13:45 28-year-old female past medical history of anemia presents to the emergency department ms3 for left flank pain that began 1 hour prior to arrival. Patient rates the pain is 10/10, patient denies radiation. Patient denies any alleviating or inciting factors. Patient denies fevers, chills, nausea.. 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 - Social history:: Smoking status: Patient denies any tobacco usage or history of. ROS: 14:20 Constitutional: Negative for fever, and chills. Neck: Negative for injury, pain, and ms3 swelling, Cardiovascular: Negative for chest pain, and palpitations. Respiratory: Negative for shortness of breath, cough, wheezing, and pleuritic chest pain, 14:20 Skin: Negative for injury, rash, and discoloration, 14:20 Abdomen/GI: Positive for Flank pain, 14:20 All other systems are negative, Exam: 14:20 Constitutional: This is a well developed, well nourished patient who is awake, alert, ms3 and in no acute distress. Head/Face: Normocephalic, atraumatic. Chest/axilla: Normal chest wall appearance and motion. Nontender with no deformity. Cardiovascular: Regular rate and rhythm with a normal S1 and S2. No gallops, murmurs, or rubs. Normal PMI, no JVD. No pulse deficits. Respiratory: Lungs have equal breath sounds bilaterally, clear to auscultation and percussion. No rales, rhonchi or wheezes noted. No increased work of breathing, no retractions or nasal flaring. 14:20 Skin: Warm, dry with normal turgor. Normal color with no rashes, no lesions, and no evidence of cellulitis. MS/ Extremity: Pulses equal, no cyanosis. Neurovascular intact. Full, normal range of motion. 14:20 Abdomen/GI: Inspection: abdomen appears normal, Bowel sounds: normal, Palpation: moderate abdominal tenderness, in the left lower quadrant, Vital Signs: 12:38 Pulse 91; Resp 17; Temp 99.1(TE); Pulse Ox 100% ; Weight 142.88 kg; Height 5 ft. 5 in. kd3 ; Pain 10/10; 12:39 BP 146 / 85; kd3 16:14 BP 144 / 86; Pulse 90; Resp 15; Temp 98.9; Pulse Ox 100% ; iw 12:38 Body Mass Index 52.42 (142.88 kg, 165.1 cm) kd3 12:38 Pain Scale: Adult kd3 MDM: 13:01 Patient medically screened. ms3 14:20 Differential diagnosis: nephrolithiasis, UTI, Pyelonephritis. ms3 15:54 Data reviewed: vital signs, nurses notes, lab test result(s), radiologic studies, CT ms3 scan, and as a result, I will discharge patient. I considered the following discharge prescriptions or medication management in the emergency department Medications were administered in the Emergency Department. See MAR. Counseling: I had a detailed discussion with the patient and/or guardian regarding the historical points, exam findings, and any diagnostic results supporting the discharge/admit diagnosis, lab results, radiology results, the need for outpatient follow up, to return to the emergency department if symptoms worsen or persist or if there are any questions or concerns that arise at home. Special discussion: Based on the patient's Hx, exam, and Dx evaluation, there is no indication for emergent surgery or inpatient Tx. It is understood by the patient/guardian that if the Sx's persist or worsen they need to return immediately for re-evaluation. ED course: Discussed CT findings of kidney stone with hydronephrosis. Patient to follow-up with urology in 2 to 3 days. Patient understands and agrees with plan. All questions were answered. Return precautions discussed include fevers, chills, worsening symptoms, or any other concerns. On reevaluation patient's pain is improved, patient is alert and oriented x4, in no apparent distress, nontoxic-appearing, ambulatory in emergency department. Patient given prescription for Tylenol 3, Flomax, ibuprofen. 10/09 13:03 Order name: CBC with Diff; Complete Time: 15:47 ms3 10/09 13:03 Order name: CMP; Complete Time: 15:47 ms3 10/09 13:03 Order name: Test, Urine; Complete Time: 15:47 ms3 10/09 13:03 Order name: Urinalysis w/ reflexes; Complete Time: 15:47 ms3 10/09 13:03 Order name: CT Abd/Pelvis - Without Contrast; Complete Time: 15:47 ms3 10/09 13:03 Order name: IV Saline Lock; Complete Time: 13:53 ms3 10/09 13:03 Order name: Labs collected and sent; Complete Time: 13:53 ms3 Administered Medications: 14:10 Drug: NS 0.9% IV 1000 ml IV at 1 bolus Per protocol; 1000 mL bolus Route: IV; Rate: 1 iw bolus; Site: left antecubital; 15:10 Follow up: Response: No adverse reaction; IV Status: Completed infusion; IV Intake: iw 1000ml 14:10 Drug: TORadol - Ketorolac IVP 15 mg IVP once Route: IVP; Site: left antecubital; iw 16:15 Follow up: Response: No adverse reaction; Pain is decreased iw Disposition: 21:30 Chart complete. ms3 Disposition Summary: 10/09/23 15:54 Discharge Ordered Notes: Location: Home ms3 Condition: Stable ms3 Diagnosis - Kidney stone ms3 - Flank pain ms3 - Anemia, unspecified ms3 Followup: ms3 - With: Gary Truong MD - When: 2 - 3 days - Reason: Recheck today's complaints Discharge Instructions: - Discharge Summary Sheet ms3 - Anemia ms3 - Kidney Stones, [id number] ms3 Forms: - Work release form iw - Medication Reconciliation Form ms3 - Thank You Letter ms3 - Antibiotic Education ms3 - Prescription Opioid Use ms3 - Patient Portal Instructions ms3 - Leadership Thank You Letter ms3 Prescriptions: - Flomax 0.4 mg Oral capsule - take 1 capsule ORAL route every 24 hours; 20 capsule; Refills: 0, Product ms3 Selection Permitted - acetaminophen-codeine 300-30 mg Oral tablet - take 1 tablet ORAL route every 6 hours; 12 tablet; Refills: 0, Product ms3 Selection Permitted - Ibuprofen 600 mg Oral Tablet - take 1 tablet ORAL route every 6 hours As needed take with food; 30 tablet; ms3 Refills: 0, Product Selection Permitted Signatures: Dispatcher [employer] Cintia Haley, RN RN Joss Cespedes DO DO ms3 Lindy Whitt RN RN kd3
--- NOTE | 2023-10-09 15:54 | ER ---
Nurse's Notes [facility] Name: Marine Sagastume Age: 28 yrs Sex: Female : 1995 Arrival Date: 10/09/2023 Time: 12:14 Bed 24 Private MD: Diagnosis: Kidney stone;Flank pain;Anemia, unspecified Presentation: 10/09 12:38 Coronavirus screen: Vaccine status: Patient reports being unvaccinated. Ebola Screen: kd3 No symptoms or risks identified at this time. Initial Sepsis Screen: Does the patient meet any 2 criteria? No. Patient's initial sepsis screen is negative. Does the patient have a suspected source of infection? No. Patient's initial sepsis screen is negative. Risk Assessment: Do you want to hurt yourself or someone else? Patient reports no desire to harm self or others. Onset of symptoms was October 09, 2023. 12:38 Method Of Arrival: Ambulatory kd3 12:38 Acuity: EDUARDO 3 kd3 12:40 Chief complaint: Patient states: I have pain in my left stomach. I think i have kidney kd3 stones again. I was nauseous earlier and i vomited but now i just have the pain. Triage Assessment: 12:39 General: Appears uncomfortable, Behavior is crying. Pain: Complains of pain in left kd3 upper quadrant. GI: Reports nausea, vomiting. 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 - Social history:: Smoking status: Patient denies any tobacco usage or history of. Screenin:06 [facility] ED Fall Risk Assessment (Adult) Score/Fall Risk Level 0 - 2 = Low Risk. Abuse iw screen: Denies threats or abuse. Denies injuries from another. Nutritional screening: No deficits noted. Tuberculosis screening: No symptoms or risk factors identified. Assessment: 14:06 General: Appears in no apparent distress. Behavior is calm, cooperative. Pain: iw Complains of pain in abdomen and left upper quadrant. Neuro: Level of Consciousness is awake, alert, obeys commands. Respiratory: Respiratory effort is even, unlabored, Respiratory pattern is regular. 16:15 Reassessment: Patient appears in no apparent distress at this time. Patient states iw feeling better. Patient states symptoms have improved. Vital Signs: 12:38 Pulse 91; Resp 17; Temp 99.1(TE); Pulse Ox 100% ; Weight 142.88 kg; Height 5 ft. 5 in. kd3 ; Pain 10/10; 12:39 BP 146 / 85; kd3 16:14 BP 144 / 86; Pulse 90; Resp 15; Temp 98.9; Pulse Ox 100% ; iw 12:38 Body Mass Index 52.42 (142.88 kg, 165.1 cm) kd3 12:38 Pain Scale: Adult kd3 ED Course: 12:15 Patient arrived in ED. rg4 12:39 Triage completed. kd3 12:39 Arm band placed on right wrist. kd3 12:45 Joss Rossi DO is Attending Physician. ms3 13:53 Urine obtained. Labs ordered per protocol. Drawn by ED staff. iw 13:53 Urinalysis w/ reflexes Sent. iw 13:53 Test, Urine Sent. iw 14:05 Cintia Swann, RN is Primary Nurse. iw 14:39 CT Abd/Pelvis - Without Contrast In Process Unspecified. EDMS 15:53 Gary Truong MD is Referral Physician. ms3 16:16 Patient has correct armband on for positive identification. Provided Education on: iw medication side effects. 16:16 No provider procedures requiring assistance completed. IV discontinued, intact, iw bleeding controlled, No redness/swelling at site. Pressure dressing applied. Administered Medications: 14:10 Drug: NS 0.9% IV 1000 ml IV at 1 bolus Per protocol; 1000 mL bolus Route: IV; Rate: 1 iw bolus; Site: left antecubital; 15:10 Follow up: Response: No adverse reaction; IV Status: Completed infusion; IV Intake: iw 1000ml 14:10 Drug: TORadol - Ketorolac IVP 15 mg IVP once Route: IVP; Site: left antecubital; iw 16:15 Follow up: Response: No adverse reaction; Pain is decreased iw Medication: 16:15 VIS not applicable for this client. iw Intake: 15:10 IV: 1000ml; Total: 1000ml. iw Outcome: 15:54 Discharge ordered by . ms3 16:26 Discharged to home ambulatory, iw 16:26 Condition: stable 16:26 Discharge instructions given to patient, Instructed on discharge instructions, follow up and referral plans. medication usage, Demonstrated understanding of instructions, follow-up care, medications, Prescriptions given X 3, 16:26 Patient left the ED. iw Signatures: Dispatcher [employer] EDCintia Campos, RN RN Anya Kuo rg4 Joss Rossi DO DO ms3 Lindy Whitt RN RN kd3
[2023-10-09 16:47] VITALS: O2SAT 100
[2023-10-09 16:49] VITALS: BP 144/86; TEMP 98.9
== END 2023-10-09 16:26 | disposition home or self-care (01) ==
LOC: ER 12:14
DX: N20.0 Calculus of kidney (principal); D64.9 Anemia, unspecified
CPT/HCPCS: 96361; 85025; 81001; 36415; 81025; 80053; 74176; 96374; 99284; J7030

== ENCOUNTER 2023-10-11 02:47 | Emergency (ER) | payer OTHER ==
[2023-10-11] MEDS ORDERED: NA CHLORIDE 0.9% 1,000 ML ONE (05:21)
[2023-10-11] MEDS ORDERED: KETOROLAC 30 MG/ML INJ ONE (05:21)
[2023-10-11 05:31] LABS: Absolute Lymphocytes (CBC) 1.8 K/uL (0.7-4.9); Hematocrit 25.9 % (36.0-45.0); MCV 70.8 fL (80-100); MPV 8.2 fL (7.6-11.3); Platelets 230 thou/uL (152-406); RBC Red Blood Cell Count 3.65 M/uL (3.86-4.86)
[2023-10-11 06:21] LABS: Specific Gravity 1.023 (1.005-1.030); Urine Bacteria None Seen /HPF (<20); Urine Bilirubin NEGATIVE (Negative); Urine Blood Negative (Negative); Urine Clarity Turbid (Clear); Urine Color Light-Yellow (Yellow); Urine Glucose NEGATIVE (Negative); Urine Protein NEGATIVE (Negative); Urine RBC <5 /HPF (None Seen); Urine Urobilinogen Normal (Normal); Urine pH 5.5 (5.0-7.0)
--- NOTE | 2023-10-11 07:50 | ER ---
Nurse's Notes [facility] Name: Marine Sagastume Age: 28 yrs Sex: Female : 1995 Arrival Date: 10/11/2023 Time: 02:47 Bed 19 Private MD: Diagnosis: Kidney Stone/ Calculus in urethra Presentation: 10/11 04:02 Chief complaint: Patient states: I was here the other day and was diagnosed with a jb4 kidney stone. The pain medication they gave is not working and I am having the same pain. Coronavirus screen: At this time, the client does not indicate any symptoms associated with coronavirus-19. Ebola Screen: No symptoms or risks identified at this time. Initial Sepsis Screen: Does the patient meet any 2 criteria? No. Patient's initial sepsis screen is negative. Does the patient have a suspected source of infection? No. Patient's initial sepsis screen is negative. Risk Assessment: Do you want to hurt yourself or someone else? Patient reports no desire to harm self or others. Onset of symptoms was October 11, 2023. Transition of care: patient was not received from another setting of care. 04:02 Method Of Arrival: Ambulatory jb4 04:02 Acuity: EDUARDO 3 jb4 Historical: - Allergies: 04:05 No Known Allergies; jb4 - PMHx: 04:05 Anemia; jb4 - PSHx: 04:05 section; Cholecystectomy; jb4 - Immunization history:: Adult Immunizations not up to date. - Social history:: Smoking status: Patient denies any tobacco usage or history of. Screenin:01 Abuse screen: Denies threats or abuse. Denies injuries from another. Nutritional ha1 screening: No deficits noted. Tuberculosis screening: No symptoms or risk factors identified. 07:05 [facility] ED Fall Risk Assessment (Adult) History of falling in the last 3 months, rs5 including since admission No falls in past 3 months (0 pts) Confusion or Disorientation No (0 pts) Intoxicated or Sedated No (0 pts) Impaired Gait No (0 pts) Mobility Assist Device Used No (0 pt) Altered Elimination No (0 pt) Score/Fall Risk Level 0 - 2 = Low Risk Oriented to surroundings, Maintained a safe environment. Assessment: 04:02 General: Appears uncomfortable, Behavior is calm, cooperative. Pain: Complains of pain ha1 in back Pain radiates to pelvis Pain currently is 9 out of 10 on a pain scale. Quality of pain is described as sharp, throbbing. Neuro: Level of Consciousness is awake, alert, obeys commands, Oriented to person, place, time, situation. Cardiovascular: Capillary refill Patient's skin is warm and dry. Respiratory: Airway is patent Respiratory effort is even, unlabored, Respiratory pattern is regular, symmetrical. GI: Abdomen is round non-distended, Bowel sounds present X 4 quads. Abd is soft and non tender X 4 quads. Derm: Skin is moist, Skin is normal. Musculoskeletal: Circulation, motion, and sensation intact. Range of motion: intact in all extremities. 05:56 Reassessment: Patient and/or family updated on plan of care and expected duration. Pain ha1 level reassessed. Patient is alert, oriented x 3, equal unlabored respirations, skin warm/dry/pink. pain 5/10 Patient states symptoms have improved. 06:44 Reassessment: Patient and/or family updated on plan of care and expected duration. Pain ha1 level reassessed. Patient is alert, oriented x 3, equal unlabored respirations, skin warm/dry/pink. Patient states feeling better. Patient states symptoms have improved. 07:05 General: Appears in no apparent distress. comfortable, Behavior is calm, cooperative. rs5 Pain: Complains of pain in back Pain radiates to pelvis Pain currently is 3 out of 10 on a pain scale. Quality of pain is described as aching, Is continuous. Neuro: Level of Consciousness is awake, alert, obeys commands, Oriented to person, place, time, situation. Cardiovascular: Heart tones S1 S2 present Capillary refill < 3 seconds Patient's skin is warm and dry. Rhythm is irregular. Respiratory: Airway is patent Respiratory effort is even, unlabored, Respiratory pattern is regular, symmetrical, Breath sounds are clear bilaterally. GI: Abdomen is round non-distended, Bowel sounds present X 4 quads. Abd is soft and non tender X 4 quads. : No signs and/or symptoms were reported regarding the genitourinary system. EENT: No signs and/or symptoms were reported regarding the EENT system. Derm: Skin is intact, Skin is moist, Skin is normal. Musculoskeletal: Range of motion: intact in all extremities. 07:40 Pain: Complains of pain in back Pain radiates to pelvis Pain currently is 7 out of 10 rs5 on a pain scale. Quality of pain is described as aching, Is continuous. 07:40 Reassessment: provider notified pt is reexperiencing pain . rs5 08:11 Reassessment: Patient denies pain at this time. Patient states feeling better. rs5 Vital Signs: 04:00 BP 100 / 68; Pulse 78; Resp 18 S; Pulse Ox 100% on R/A; ha1 04:02 BP 155 / 98; Pulse 82; Resp 16; Temp 98(TE); Pulse Ox 100% on R/A; Weight 142.88 kg jb4 (R); Height 5 ft. 5 in. ; 04:30 BP 128 / 87; Pulse 76; Resp 18 S; Pulse Ox 100% on R/A; ha1 05:30 BP 139 / 93; Pulse 68; Resp 18 S; Pulse Ox 100% on R/A; ha1 06:30 BP 141 / 89; Pulse 77; Resp 18 S; Pulse Ox 100% on R/A; ha1 07:36 BP 144 / 91; Pulse 76; Resp 17; Pulse Ox 99% on R/A; rs5 04:02 Body Mass Index 52.42 (142.88 kg, 165.1 cm) jb4 ED Course: 02:49 Patient arrived in ED. gm2 03:48 Rhonda Viera is Attending Physician. ci 04:02 Patient has correct armband on for positive identification. Bed in low position. Call ha1 light in reach. Side rails up X 1. 04:05 Triage completed. jb4 04:05 Arm band placed on right wrist. jb4 04:30 Missed attempt(s): 22 gauge in right forearm. ha1 04:40 Inserted saline lock: 20 gauge in right antecubital area, using aseptic technique. ha1 Blood collected. 05:56 Magui Dias, RICHAR is Primary Nurse. ha1 08:10 No provider procedures requiring assistance completed. rs5 08:10 IV discontinued, intact, bleeding controlled, No redness/swelling at site. Pressure rs5 dressing applied. Administered Medications: 04:55 Drug: TORadol - Ketorolac IVP 15 mg IVP once Route: IVP; Site: right antecubital; ha1 05:30 Follow up: Response: No adverse reaction; Pain is decreased ha1 04:55 Drug: NS 0.9% IV 1000 ml IV at 1000 ml once Route: IV; Rate: 1000 ml; Site: right ha1 antecubital; 06:46 Follow up: IV Status: Infusion continued ha1 08:01 Drug: morphine IVP or IV 4 mg IVP once over 4 mins Route: IVP; Infused Over: 4 mins; rs5 Site: right antecubital; 08:14 Follow up: Response: No adverse reaction; Pain is decreased rs5 Medication: 06:46 VIS not applicable for this client. ha1 Outcome: 07:50 Discharge ordered by . debbie 08:10 Discharged to home via wheelchair, with family, with friend, rs5 08:10 Condition: stable 08:10 Discharge instructions given to patient, family, friend, Instructed on discharge instructions, follow up and referral plans. medication usage, Demonstrated understanding of instructions, follow-up care, medications, Prescriptions given X 2, 08:14 Patient left the ED. rs5 Signatures: Ramón Bob RN RN jb4 Magui Dias RN RN ha1 Kev Gallagher RN RN rs5 Rhonda Viera Ginger 2
--- NOTE | 2023-10-11 07:51 | EDPHYS ---
Physician Documentation [facility] Name: Marine Sagastume Age: 28 yrs Sex: Female : 1995 Arrival Date: 10/11/2023 Time: 02:47 Bed 19 Private MD: ED Physician Rhonda Viera HPI: 10/11 05:31 Patient is a 28-year-old female with PMH kidney stones, anemia who presents to the ED ci with chief complaint of left flank pain that has been ongoing for 2 days. Patient was seen in the emergency department on 10/09 and diagnosed with a left 4 mm kidney stone. Patient reports she was discharged with Tylenol 3, Flomax, she has been taking this with no improvement and is here for pain control. She denies any trauma, no injury to back, no bladder/bowel dysfunction.. Historical: - Allergies: 04:05 No Known Allergies; jb4 - PMHx: 04:05 Anemia; jb4 - PSHx: 04:05 section; Cholecystectomy; jb4 - Immunization history:: Adult Immunizations not up to date. - Social history:: Smoking status: Patient denies any tobacco usage or history of. Vital Signs: 04:00 BP 100 / 68; Pulse 78; Resp 18 S; Pulse Ox 100% on R/A; ha1 04:02 BP 155 / 98; Pulse 82; Resp 16; Temp 98(TE); Pulse Ox 100% on R/A; Weight 142.88 kg jb4 (R); Height 5 ft. 5 in. ; 04:30 BP 128 / 87; Pulse 76; Resp 18 S; Pulse Ox 100% on R/A; ha1 05:30 BP 139 / 93; Pulse 68; Resp 18 S; Pulse Ox 100% on R/A; ha1 06:30 BP 141 / 89; Pulse 77; Resp 18 S; Pulse Ox 100% on R/A; ha1 07:36 BP 144 / 91; Pulse 76; Resp 17; Pulse Ox 99% on R/A; rs5 04:02 Body Mass Index 52.42 (142.88 kg, 165.1 cm) jb4 MDM: 04:08 Patient medically screened. ci 05:31 Differential diagnosis: Hydronephrosis Pyelonephritis Ureterolithiasis. ci 07:49 ED course: Patient reassessed, reports pain is significantly improved.. ci 07:51 ED course: CT abdomen/pelvis IMPRESSION 10/09: Moderate left hydroureteronephrosis with ci a 4 millimeter calculus at the level of the mid left ureter.. 10/11 03:51 Order name: CBC with Diff; Complete Time: 05:34 ci 10/11 05:34 Interpretation: Abnormal: HGB 8.4; MCV 70.8. ci 10/11 03:51 Order name: BMP; Complete Time: 06:08 ci 10/11 05:34 Order name: Urinalysis w/ reflexes; Complete Time: 06:38 ci 10/11 03:51 Order name: Labs collected and sent; Complete Time: 05:56 ci Administered Medications: 04:55 Drug: TORadol - Ketorolac IVP 15 mg IVP once Route: IVP; Site: right antecubital; ha1 05:30 Follow up: Response: No adverse reaction; Pain is decreased ha1 04:55 Drug: NS 0.9% IV 1000 ml IV at 1000 ml once Route: IV; Rate: 1000 ml; Site: right ha1 antecubital; 06:46 Follow up: IV Status: Infusion continued ha1 08:01 Drug: morphine IVP or IV 4 mg IVP once over 4 mins Route: IVP; Infused Over: 4 mins; rs5 Site: right antecubital; 08:14 Follow up: Response: No adverse reaction; Pain is decreased rs5 Disposition Summary: 10/11/23 07:50 Discharge Ordered Notes: Location: Home ci Condition: Stable ci Diagnosis - Kidney Stone/ Calculus in urethra ci Followup: ci - With: Private Physician - When: 1 - 2 days - Reason: Recheck today's complaints, Re-evaluation by your physician Discharge Instructions: - Discharge Summary Sheet ci - Kidney Stones, [id number] ci - Dietary Guidelines to Help Prevent Kidney Stones ci Forms: - Medication Reconciliation Form ci - Thank You Letter ci - Antibiotic Education ci - Prescription Opioid Use ci - Patient Portal Instructions ci - Leadership Thank You Letter ci Prescriptions: - naproxen 500 mg Oral tablet - take 1 tablet ORAL route every 12 hours as needed for pain; 20 tablet; Refills: ci 0, Product Selection Permitted - Zofran 4 mg Oral tablet - take 1 tablet ORAL route every 6 hours As needed; 20 tablet; Refills: 0, ci Product Selection Permitted Signatures: Dispatcher [employer] Ramón Abraham RN RN jb4 Magui Dias RN RN ha1 Kev Gallagher RN RN rs5 Rhonda Viera ci
[2023-10-11] MEDS ORDERED: MORPHINE 4 MG/ML SYR ONE (08:11)
[2023-10-11 08:29] VITALS: O2SAT 100
[2023-10-11 08:34] VITALS: TEMP 98
[2023-10-11 08:42] VITALS: BP 141/89
== END 2023-10-11 08:14 | disposition home or self-care (01) ==
LOC: ER 02:47
DX: N20.0 Calculus of kidney (principal); N21.1 Calculus in urethra; D64.9 Anemia, unspecified; R10.9 Unspecified abdominal pain
CPT/HCPCS: 96361; 85025; 81001; 80048; 36415; 96375; 96374; 99284; J7030

== ENCOUNTER 2023-11-12 01:22 | Emergency (ER) | payer OTHER ==
[2023-11-12] MEDS ORDERED: BENZONATATE 100 MG CAP PO ONE (02:02)
[2023-11-12] MEDS ORDERED: DIPHENHYDRAMINE 25 MG TAB/CAP ONE (02:40)
[2023-11-12] MEDS ORDERED: IBUPROFEN 400 MG TAB ONE (02:41)
[2023-11-12] MEDS ORDERED: CODEINE 30MG/APAP 300MG TAB ONE (02:41)
[2023-11-12] MEDS ORDERED: AZITHROMYCIN 250 MG TAB ONE (02:41)
[2023-11-12] MEDS ORDERED: ONDANSETRON 4 MG (ODT) TAB ONE (02:42)
[2023-11-12 02:55] LABS: Specific Gravity 1.029 (1.005-1.030)
[2023-11-12 03:03] LABS: SARS-COV-2 RT PCR NEGATIVE (NEGATIVE)
--- NOTE | 2023-11-12 03:54 | ER ---
Nurse's Notes [facility] Name: Marine Sagastume Age: 28 yrs Sex: Female : 1995 Arrival Date: 11/12/2023 Time: 01:22 Bed 19 Private MD: Diagnosis: Other specified viral diseases;Acute influenza B, nasal congestion Presentation: 11/12 01:36 Chief complaint: Patient states: has painful chest cough and congestion for 2 days. tm6 Coronavirus screen: Vaccine status: Patient reports being unvaccinated. Client denies travel out of the [place] in the last 14 days. Ebola Screen: Patient negative for fever greater than or equal to 101.5 degrees Fahrenheit, and additional compatible Ebola Virus Disease symptoms Patient denies exposure to infectious person. Patient denies travel to an Ebola-affected area in the 21 days before illness onset. No symptoms or risks identified at this time. Initial Sepsis Screen: Does the patient meet any 2 criteria? No. Patient's initial sepsis screen is negative. Does the patient have a suspected source of infection? No. Patient's initial sepsis screen is negative. Risk Assessment: Do you want to hurt yourself or someone else? Patient reports no desire to harm self or others. Onset of symptoms was November 10, 2023. 01:36 Method Of Arrival: Ambulatory tm6 01:36 Acuity: EDUARDO 3 tm6 Triage Assessment: 01:39 General: Appears in no apparent distress. Behavior is calm, cooperative. Pain: tm6 Complains of pain in chest Pain currently is 10 out of 10 on a pain scale. Quality of pain is described as from cough Pain began 2-3 days ago. EENT: Reports nasal congestion since today. Neuro: Level of Consciousness is awake, alert, obeys commands, Oriented to person, place, time, situation. Cardiovascular: Capillary refill < 3 seconds Patient's skin is warm and dry. Respiratory: Reports cough that is dry, Airway is patent Respiratory effort is even, unlabored, Respiratory pattern is regular, symmetrical. GI: Abdomen is round non-distended. : No signs and/or symptoms were reported regarding the genitourinary system. Derm: No signs and/or symptoms reported regarding the dermatologic system. Musculoskeletal: No signs and/or symptoms reported regarding the musculoskeletal system. Historical: - Allergies: 01:39 No Known Allergies; tm6 - PMHx: 01:39 Anemia; tm6 - PSHx: 01:39 section; Cholecystectomy; tm6 - Immunization history:: Adult Immunizations up to date, Client reports having NOT received the Covid vaccine. - Social history:: Smoking status: Patient denies any tobacco usage or history of. Patient uses alcohol, occasionally. - Family history:: not pertinent. Screenin:41 [facility] ED Fall Risk Assessment (Adult) History of falling in the last 3 months, tm6 including since admission No falls in past 3 months (0 pts). Abuse screen: Denies threats or abuse. Denies injuries from another. Nutritional screening: No deficits noted. Tuberculosis screening: No symptoms or risk factors identified. Assessment: 01:41 Reassessment: see triage assessment. tm6 01:53 EENT: Reports decreased hearing since two days ago "ears feel full". tm6 03:05 Reassessment: Patient appears in no apparent distress at this time. Patient and/or tm6 family updated on plan of care and expected duration. Pain level reassessed. Patient is alert, oriented x 3, equal unlabored respirations, skin warm/dry/pink. 03:54 Reassessment: No changes from previously documented assessment. tm6 Vital Signs: 01:36 BP 99 / 67; Pulse 94; Resp 16; Temp 98.4; Pulse Ox 100% ; Weight 145.15 kg; Height 5 tm6 ft. 5 in. ; Pain 10/10; 01:45 BP 112 / 82; Pulse 86; Pulse Ox 100% on R/A; tm6 02:00 BP 117 / 91; Pulse 83; Pulse Ox 100% on R/A; tm6 03:05 BP 131 / 82; Pulse 87; Pulse Ox 100% on R/A; tm6 03:53 BP 135 / 96; Pulse 83; Pulse Ox 100% on R/A; tm6 01:36 Body Mass Index 53.25 (145.15 kg, 165.1 cm) tm6 01:36 Pain Scale: Adult tm6 ED Course: 01:24 Patient arrived in ED. gm2 01:26 Bronson Crain, RN is Primary Nurse. tm6 01:39 Triage completed. tm6 01:39 Arm band placed on right wrist. tm6 01:41 Patient has correct armband on for positive identification. Bed in low position. Call tm6 light in reach. Side rails up X2. Provided Education on: VS monitoring. Client placed on continuous cardiac and pulse oximetry monitoring. NIBP monitoring applied. Door closed. Noise minimized. Lights dimmed. Warm blanket given. 02:10 Abner Gallardo MD is Attending Physician. sp4 02:39 Test, Urine Sent. pf1 02:40 COVID-19/FLU A+B Sent. pf1 02:47 XRAY Chest Pa And Lat (2 Views) In Process Unspecified. EDMS 03:58 No provider procedures requiring assistance completed. Patient did not have IV access pf1 during this emergency room visit. Administered Medications: 01:51 Drug: Tessalon Perle PO 100 mg PO once Route: PO; tm6 02:50 Follow up: Response: No adverse reaction; Marked relief of symptoms pf1 03:00 Drug: Ibuprofen PO 800 mg PO once Route: PO; pf1 03:57 Follow up: Response: No adverse reaction; Marked relief of symptoms; Pain is decreased pf1 03:00 Drug: Acetaminophen-Codeine PO (300 mg-30 mg) 2 tabs PO once; RASS on ADMIN: Combtv4, pf1 Very Agttd3, Agttd2, Rstlss1, AlertClm0, Drwsy-1, Lt Sdtn-2, Mod Sdtn-3, Dp Sdtn-4, UnArsble-5 Route: PO; 03:57 Follow up: Response: No adverse reaction; Marked relief of symptoms; Pain is decreased; pf1 RASS: Alert and Calm (0) 03:00 Drug: AZITHromycin PO 500 mg PO once Route: PO; pf1 03:57 Follow up: Response: No adverse reaction; Marked relief of symptoms; Pain is decreased pf1 03:00 Drug: Ondansetron PO 4 mg PO once Route: PO; pf1 03:57 Follow up: Response: No adverse reaction; Marked relief of symptoms pf1 03:00 Drug: diphenhydrAMINE PO 25 mg PO once Route: PO; pf1 03:57 Follow up: Response: No adverse reaction; Marked relief of symptoms; Pain is decreased pf1 Medication: 01:41 VIS not applicable for this client. tm6 Outcome: 03:54 Discharge ordered by . sp4 03:58 Discharged to home ambulatory, pf1 03:58 Condition: improved 03:58 Discharge instructions given to patient, Instructed on discharge instructions, follow up and referral plans. Demonstrated understanding of instructions, follow-up care, medications, Prescriptions given X 3, 03:59 Patient left the ED. pf1 Signatures: Dispatcher [employer] Mira Topete RN RN pf1 Abner Gallardo MD MD sp4 Ellen Cates 2 Bronson Crain RN RN tm6
--- NOTE | 2023-11-12 03:55 | EDPHYS ---
Physician Documentation [facility] Name: Marine Sagastume Age: 28 yrs Sex: Female : 1995 Arrival Date: 11/12/2023 Time: 01:22 Bed 19 Private MD: ED Physician Abner Gallardo HPI: 11/12 02:10 This 28 yrs old Black Female presents to ER via Ambulatory with complaints of Cough, sp4 Nasal Congestion. 02:11 PMH - PMHx: Anemia; PSHx: section; Cholecystectomy; . sp4 03:49 Patient presents with a very unpleasant cough, nasal congestion, feeling unwell overall sp4 and earaches starting yesterday.. . 03:49 Patient reports chest congestion and upper airway congestion. sp4 Historical: - Allergies: 01:39 No Known Allergies; tm6 - PMHx: 01:39 Anemia; tm6 - PSHx: 01:39 section; Cholecystectomy; tm6 - Immunization history:: Adult Immunizations up to date, Client reports having NOT received the Covid vaccine. - Social history:: Smoking status: Patient denies any tobacco usage or history of. Patient uses alcohol, occasionally. - Family history:: not pertinent. ROS: 03:49 Constitutional: Negative for fever, chills, and weight loss, positive cough, sp4 congestion, bilateral ear ache 03:49 All other systems are negative, Exam: 03:49 Constitutional: This is a well developed, well nourished patient who is awake, alert, sp4 and in no acute distress. Head/Face: Normocephalic, atraumatic. Eyes: Pupils equal round and reactive to light, extra-ocular motions intact. Lids and lashes normal. Conjunctiva and sclera are not injected. Cornea within normal limits. Periorbital areas with no swelling, redness, or edema. ENT: Nares patent. no septal abnormalities noted. Tympanic membranes are normal and external auditory canals are clear. Oropharynx with no redness, swelling, or masses, exudates, or evidence of obstruction, uvula midline. Mucous membranes moist. Exam patient has significant nasal congestion. Neck: Trachea midline, no thyromegaly or masses palpated, and no cervical lymphadenopathy. Supple, full range of motion without nuchal rigidity, or vertebral point tenderness. Chest/axilla: Normal chest wall appearance and motion. Nontender with no deformity. No lesions are appreciated. Cardiovascular: Regular rate and rhythm with a normal S1 and S2. No gallops, murmurs, or rubs. Normal PMI, no JVD. No pulse deficits. Respiratory: Lungs have equal breath sounds bilaterally, clear to auscultation and percussion. No rales, rhonchi or wheezes noted. No increased work of breathing, no retractions or nasal flaring. Abdomen/GI: Soft, non-tender, with normal bowel sounds. No distension or tympany. No guarding or rebound. No evidence of tenderness throughout. Back: No spinal tenderness. No costovertebral tenderness. Skin: Warm, dry with normal turgor. Normal color with no rashes, no lesions, and no evidence of cellulitis. MS/ Extremity: Pulses equal, no cyanosis. Neurovascular intact. Full, normal range of motion. Neuro: Awake and alert, GCS 15, oriented to person, place, time, and situation. Cranial nerves II-XII grossly intact. Motor strength 5/5 in all extremities. Sensory grossly intact. Psych: Awake, alert, with orientation to person, place and time. Behavior, mood, and affect are within normal limits Vital Signs: 01:36 BP 99 / 67; Pulse 94; Resp 16; Temp 98.4; Pulse Ox 100% ; Weight 145.15 kg; Height 5 tm6 ft. 5 in. ; Pain 10/10; 01:45 BP 112 / 82; Pulse 86; Pulse Ox 100% on R/A; tm6 02:00 BP 117 / 91; Pulse 83; Pulse Ox 100% on R/A; tm6 03:05 BP 131 / 82; Pulse 87; Pulse Ox 100% on R/A; tm6 03:53 BP 135 / 96; Pulse 83; Pulse Ox 100% on R/A; tm6 01:36 Body Mass Index 53.25 (145.15 kg, 165.1 cm) tm6 01:36 Pain Scale: Adult tm6 MDM: 02:22 Patient medically screened. sp4 03:13 ED course: Chest - EXAM DESCRIPTION: X-ray two view chest. CLINICAL HISTORY: 28 years sp4 Female, CONGESTION COMPARISON: CT chest report from 11/06/2022. The images were unavailable for review. TECHNIQUE: PA and Lateral views of the chest performed on 11/12/2023 at 2:37 AM FINDINGS: The lungs are well expanded and are clear. The costophrenic sulci are clear. There is no evidence of a pneumothorax. The cardiac silhouette is normal in size. The mediastinal contours are normal. No acute osseous abnormalities are identified. No focal soft tissue abnormalities are identified. IMPRESSION: No evidence of acute intrathoracic disease. 03:49 Differential Diagnosis: Bronchitis Influenza Upper Respiratory Infection Sinusitis. sp4 Data reviewed: vital signs, nurses notes, lab test result(s), Flu: positive UPT: negative radiologic studies, plain films. Consideration of Admission/Observation Escalation of care including admission/observation considered. ED course: Will prescribe oseltamavir, ibuprofen, ondansetron . . 11/12 01:41 Order name: COVID-19/FLU A+B; Complete Time: 03:49 lg3 11/12 02:16 Order name: Test, Urine; Complete Time: 03:13 sp4 11/12 01:41 Order name: XRAY Chest Pa And Lat (2 Views) lg3 Administered Medications: 01:51 Drug: Tessalon Perle PO 100 mg PO once Route: PO; tm6 02:50 Follow up: Response: No adverse reaction; Marked relief of symptoms pf1 03:00 Drug: Ibuprofen PO 800 mg PO once Route: PO; pf1 03:57 Follow up: Response: No adverse reaction; Marked relief of symptoms; Pain is decreased pf1 03:00 Drug: Acetaminophen-Codeine PO (300 mg-30 mg) 2 tabs PO once; RASS on ADMIN: Combtv4, pf1 Very Agttd3, Agttd2, Rstlss1, AlertClm0, Drwsy-1, Lt Sdtn-2, Mod Sdtn-3, Dp Sdtn-4, UnArsble-5 Route: PO; 03:57 Follow up: Response: No adverse reaction; Marked relief of symptoms; Pain is decreased; pf1 RASS: Alert and Calm (0) 03:00 Drug: AZITHromycin PO 500 mg PO once Route: PO; pf1 03:57 Follow up: Response: No adverse reaction; Marked relief of symptoms; Pain is decreased pf1 03:00 Drug: Ondansetron PO 4 mg PO once Route: PO; pf1 03:57 Follow up: Response: No adverse reaction; Marked relief of symptoms pf1 03:00 Drug: diphenhydrAMINE PO 25 mg PO once Route: PO; pf1 03:57 Follow up: Response: No adverse reaction; Marked relief of symptoms; Pain is decreased pf1 Disposition Summary: 11/12/23 03:54 Discharge Ordered Notes: Work release for 5 days Location: Home sp4 Problem: new sp4 Symptoms: have improved sp4 Condition: Stable sp4 Diagnosis - Other specified viral diseases sp4 - Acute influenza B, nasal congestion sp4 Followup: sp4 - With: Private Physician - When: 5 - 6 days - Reason: Recheck today's complaints, Continuance of care Discharge Instructions: - Influenza, Adult, [id number] sp4 - Discharge Summary Sheet tm6 Forms: - Patient Portal Instructions sp4 - Work release form tm6 Prescriptions: - Ibuprofen 800 mg Oral Tablet - take 1 tablet ORAL route every 8 hours As needed take with food; 30 tablet; sp4 Refills: 0, Product Selection Permitted - Tamiflu 75 mg Oral Capsule - take 1 capsule ORAL route every 12 hours for 5 days; 10 capsule; Refills: 0, sp4 Product Selection Permitted - ondansetron 8 mg Oral Tablet,disintegrating - take 1 tablet ORAL route every 8 hours PRN nausea; 30 tablet; Refills: 0, sp4 Product Selection Permitted Signatures: Dispatcher [employer] Bobbi Angeles, RN RN lg3 Mira Bradshaw RN RN pf1 Abner Gallardo MD MD sp4 Bronson Crain RN RN tm6
[2023-11-12 04:46] VITALS: TEMP 98.4; O2SAT 100
[2023-11-12 04:52] VITALS: BP 135/96
--- NOTE | 2023-11-12 12:37 | RAD REPORT ---
EXAM DESCRIPTION: RAD - Chest Pa And Lat (2 Views) - 11/12/2023 2:45 am CLINICAL HISTORY: 28 years Female, CONGESTION COMPARISON: CT chest report from 11/06/2022. The images were unavailable for review. TECHNIQUE: PA and Lateral views of the chest performed on 11/12/2023 at 2:37 AM FINDINGS: The lungs are well expanded and are clear. The costophrenic sulci are clear. There is no e vidence of a pneumothorax. The cardiac silhouette is normal in size. The mediastinal contours are normal. No acute osseous abnormalities are identified. No focal soft tissue abnormalities are identified. IMPRESSION: No evidence of acute intrathoracic disease. Electronically signed by: Aziza Fernandez DO 11/12/2023 02:[address] SQL DEVELOPER Due to temporary technical issues with the PACS/Fluency reporting system, reports are being signed by the in house radiologist without review as a courtesy to ensure prompt reporting. The interpreting r adiologist is fully responsible for the content of the report.
== END 2023-11-12 03:59 | disposition home or self-care (01) ==
LOC: ER 01:22
DX: J10.1 Influenza due to other identified influenza virus with other respiratory manifestations (principal); Z11.52 Encounter for screening for COVID-19; Z28.310 Unvaccinated for COVID-19
CPT/HCPCS: 81025; 0240U; 71046; Q0162